=== PATIENT | female | born 1935 | race Caucasian/White ===

== ENCOUNTER 2017-09-19 11:05 | Inpatient (IN) | payer MEDICARE, BC ==
[~2017-09-19] VITALS: Ht 152.4 cm; Wt 68.6 kg
[2017-09-19 13:00] VITALS: BP 212/93; PULSE 76; RESP 16; TEMP 98.4; O2SAT 98
[2017-09-19] MEDS ORDERED: LACTULOSE SYRUP 20 GM/30 ML CUP PO PRN (13:30)
[2017-09-19] MEDS ORDERED: ACETAMINOPHEN 325 MG TAB PO PRN (13:30)
[2017-09-19] MEDS ORDERED: oxyCODONE/ACETAMINOPHEN 5 MG/325 MG TAB PO PRN (13:30)
[2017-09-19] MEDS ORDERED: CHLORHEXIDINE GLUCONATE 2 % 1 PACK (2 CLOTHS) TOP PRN (13:30)
[2017-09-19] MEDS ORDERED: SENNOSIDES 8.6 MG TAB PO PRN (13:30)
[2017-09-19] MEDS ORDERED: ONDANSETRON HCL 4 MG/2 ML VIAL IV PUSH PRN (13:30)
[2017-09-19] MEDS ORDERED: BISACODYL 10 MG SUPP RECTAL PRN (13:30)
[2017-09-19] MEDS ORDERED: MISCELLANEOUS NURSING INFORMATION XX SCH (13:30)
[2017-09-19] MEDS ORDERED: MAGNESIUM HYDROXIDE SUSP 30 ML CUP PO PRN (13:30)
[2017-09-19] MEDS ORDERED: RESP: ALBUTEROL 2.5 MG/IPRATROPIUM 0.5 MG NEB (PRN) INH (13:30)
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
[2017-09-19] MEDS ORDERED: COQ-50CA2 PO (13:41)
[2017-09-19] MEDS ORDERED: BIOTCAP PO (13:41)
[2017-09-19] MEDS ORDERED: FURO40TA PO (13:41)
[2017-09-19] MEDS ORDERED: NORC5TAB PO (13:41)
[2017-09-19] MEDS ORDERED: VITA1000 PO (13:41)
[2017-09-19] MEDS ORDERED: LEVO.05 PO (13:41)
[2017-09-19] MEDS ORDERED: MAGN400T2 PO (13:41)
[2017-09-19] MEDS ORDERED: MULTTAB67 PO (13:41)
[2017-09-19] MEDS ORDERED: ATOR20TA15 PO (13:41)
[2017-09-19] MEDS ORDERED: ALLO100T PO (13:41)
[2017-09-19] MEDS ORDERED: CARV25TA PO (13:41)
[2017-09-19] MEDS ORDERED: KLOR10TA PO (13:41)
[2017-09-19] MEDS ORDERED: LOSA100T PO (13:41)
[2017-09-19] MEDS ORDERED: ISOS30TA3 PO (13:41)
[2017-09-19] MEDS ORDERED: CLON0.3T PO (13:41)
[2017-09-19] MEDS ORDERED: FAMO1TAB37 PO (13:41)
[2017-09-19] MEDS ORDERED: MORPHINE SULFATE 2 MG/ML INJ IV PUSH PRN (13:45)
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
[2017-09-19] MEDS: cloNIDine HCL 0.3 MG TAB PO SCH ×2 (14:00→19:59)
[2017-09-19] MEDS: SODIUM CHLOR 0.9% 1000 ML INJ 1,000 ML IV SCH (14:00)
[2017-09-19] MEDS ORDERED: hydrALAZINE HCL 20 MG/ML VIAL IV PUSH PRN (14:00)
[2017-09-19] MEDS: LOSARTAN 50 MG TAB PO SCH (14:01)
[2017-09-19] MEDS: CARVEDILOL 12.5 MG TAB PO SCH ×2 (14:02→19:59)
[2017-09-19] MEDS: LABETALOL HCL 100 MG/20 ML VIAL IV PUSH PRN (14:44)
[2017-09-19 15:00] VITALS: PULSE 62
[2017-09-19 16:00] VITALS: BP 158/70; PULSE 60; RESP 14; TEMP 97.8; O2SAT 100
[2017-09-19] MEDS: DOCUSATE SODIUM 50 MG/SENNA 8.6 MG TAB PO SCH (19:59)
[2017-09-19] MEDS: FAMOTIDINE 20 MG TAB PO SCH (19:59)
[2017-09-19 20:00] VITALS: BP 150/53; PULSE 101; PULSE 58; RESP 16; TEMP 96.9; O2SAT 99
[2017-09-19 22:00] VITALS: PULSE 53
[2017-09-19 23:39] VITALS: O2SAT 99
[2017-09-20] VITALS (16 sets, daily range): BP systolic 115–196; BP diastolic 56–83; PULSE 54–67; RESP 12–27; TEMP 97.4–98.6; O2SAT 93–100
[2017-09-20] MEDS: LABETALOL HCL 100 MG/20 ML VIAL IV PUSH PRN ×3 (00:35→08:40)
[2017-09-20] MEDS ORDERED: hydrALAZINE HCL 20 MG/ML VIAL IV SCH (03:30)
[2017-09-20] MEDS: CHLORHEXIDINE GLUCONATE 2 % 1 PACK (2 CLOTHS) TOP SCH (04:00)
[2017-09-20] MEDS: LEVOTHYROXINE SODIUM 50 MCG TAB PO SCH (04:11)
[2017-09-20] MEDS ORDERED: cloNIDine HCL 0.1 MG TAB PO SCH (04:15)
[2017-09-20] MEDS: SODIUM CHLOR 0.9% 1000 ML INJ 1,000 ML IV SCH (05:35)
[2017-09-20] MEDS: ISOSORBIDE MONONITRATE 30 MG CR TAB (IMDUR) PO SCH (05:35)
[2017-09-20 07:07] LABS: BICARBONATE 24.1 MEQ/L (21.0-32.0); CALCIUM 8.2 MG/DL (8.5-10.1); CREATININE 1.29 MG/DL (0.50-1.00); MAGNESIUM 1.5 MG/DL (1.5-2.5); PHOSPHORUS 2.7 MG/DL (2.5-4.9)
[2017-09-20 07:29] LABS: AUTOMATED NEUTROPHIL # 2.6 TH/MM3 (1.8-7.7); BASOPHIL % 0.4 % (0.0-2.0); EOSINOPHIL % 0.9 % (0.0-4.0); LYMPH % 12.1 % (9.0-44.0); LYMPHOCYTE # 0.4 TH/MM3 (1.0-4.8); MEAN CELL VOLUME 120.6 FL (80.0-100.0); MEAN CORPUSCULAR HEMOGLOBIN 41.3 PG (27.0-34.0); MEAN CORPUSCULAR HGB CONC 34.3 % (32.0-36.0); MEAN PLATELET VOLUME 9.1 FL (7.0-11.0); MONO % 6.6 % (0.0-8.0); MONOCYTE # 0.2 TH/MM3 (0-0.9); PLATELET COUNT 53 TH/MM3 (150-450); RED BLOOD COUNT 1.71 MIL/MM3 (4.00-5.30); RED CELL DISTRIBUTION WIDTH 16.2 % (11.6-17.2); WHITE BLOOD COUNT 3.3 TH/MM3 (4.0-11.0)
[2017-09-20] MEDS: CARVEDILOL 12.5 MG TAB PO SCH ×2 (07:39→20:38)
[2017-09-20] MEDS: FAMOTIDINE 20 MG TAB PO SCH ×2 (07:39→20:38)
[2017-09-20] MEDS: LOSARTAN 50 MG TAB PO SCH (07:40)
[2017-09-20] MEDS: FUROSEMIDE 40 MG TAB PO SCH (07:40)
[2017-09-20] MEDS: cloNIDine HCL 0.3 MG TAB PO SCH ×2 (07:40→20:38)
[2017-09-20] MEDS: ATORVASTATIN 40 MG TAB PO SCH (07:40)
[2017-09-20] MEDS: DOCUSATE SODIUM 50 MG/SENNA 8.6 MG TAB PO SCH ×2 (07:41→20:38)
[2017-09-20 07:58] LABS: HEMATOCRIT 20.6 % (35.0-46.0)
[2017-09-20 09:00] LABS: OVALOCYTES 1+ (NORMAL)
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
--- NOTE | 2017-09-20 17:31 | RADRPT ---
EXAM DATE/TIME: 09/20/2017 17:07 [place] COMPARISON: No previous studies available for comparison. INDICATIONS : Abnormal prior brain imaging, evaluate status of subdural hematoma. RADIATION DOSE: 44.36 CTDIvol (mGy) MEDICAL HISTORY : Non-responsive. SURGICAL HISTORY : Non-responsive. ENCOUNTER: Initial ACUITY: 1 day PAIN SCALE: Non-responsive LOCATION: Bilateral head TECHNIQUE: Multiple contiguous axial images were obtained of the head. Using automated exposure control and adj ustment of the mA and/or kV according to patient size, radiation dose was kept as low as reasonably a chievable to obtain optimal diagnostic quality images. DICOM format image data is available electro nically for review and comparison. FINDINGS: No prior study for comparison. There is a 2.6 x 1.5 cm hematoma in the medial inferior right frontal lobe with surrounding edema and mild mass effect with slight midline shift of the frontal region. There is some linear hemorrhage in the left cerebellar hemisphere.. There is posterior scalp swelling or hematoma. CONCLUSION: 1. 2.6 x 1.5 cm hematoma in the medial right frontal lobe with surrounding edema and mild mass effect . Linear hemorrhage in the left cerebellar hemisphere. Otherwise no significant subdural fluid accumu lations identified. Posterior scalp hematoma. Pranay Dolan MD on September 20, 2017 at 17:21 Board Certified Radiologist. This report was verified electronically.
[2017-09-21] VITALS (12 sets, daily range): BP systolic 158–204; BP diastolic 62–87; PULSE 58–75; RESP 18–20; TEMP 97.4–98.8; O2SAT 94–100
[2017-09-21] MEDS: ENALAPRILAT 2.5 MG/2 ML VIAL IV PUSH PRN (02:14)
[2017-09-21] MEDS: CHLORHEXIDINE GLUCONATE 2 % 1 PACK (2 CLOTHS) TOP SCH (03:45)
[2017-09-21] MEDS: ISOSORBIDE MONONITRATE 30 MG CR TAB (IMDUR) PO SCH (06:17)
[2017-09-21] MEDS: LEVOTHYROXINE SODIUM 50 MCG TAB PO SCH (06:17)
[2017-09-21] MEDS ORDERED: cloNIDine HCL 0.2 MG TAB PO SCH (07:15)
[2017-09-21] MEDS: FAMOTIDINE 20 MG TAB PO SCH ×2 (08:34→21:56)
[2017-09-21] MEDS: DOCUSATE SODIUM 50 MG/SENNA 8.6 MG TAB PO SCH ×2 (08:35→21:55)
[2017-09-21] MEDS: ATORVASTATIN 40 MG TAB PO SCH (08:37)
[2017-09-21] MEDS: cloNIDine HCL 0.3 MG TAB PO SCH ×2 (08:38→21:55)
[2017-09-21] MEDS: LOSARTAN 50 MG TAB PO SCH (08:38)
[2017-09-21] MEDS: CARVEDILOL 12.5 MG TAB PO SCH ×2 (08:38→21:55)
[2017-09-21] MEDS: FUROSEMIDE 40 MG TAB PO SCH (08:38)
[2017-09-21 09:32] LABS: AUTOMATED NEUTROPHIL # 3.5 TH/MM3 (1.8-7.7); BASOPHIL % 0.5 % (0.0-2.0); HEMATOCRIT 24.8 % (35.0-46.0); HEMOGLOBIN 8.5 GM/DL (11.6-15.3); LYMPH % 11.9 % (9.0-44.0); LYMPHOCYTE # 0.5 TH/MM3 (1.0-4.8); MEAN CELL VOLUME 111.5 FL (80.0-100.0); MEAN CORPUSCULAR HEMOGLOBIN 38.3 PG (27.0-34.0); MEAN CORPUSCULAR HGB CONC 34.3 % (32.0-36.0); MEAN PLATELET VOLUME 8.1 FL (7.0-11.0); MONO % 7.2 % (0.0-8.0); MONOCYTE # 0.3 TH/MM3 (0-0.9); NEUT % 79.4 % (16.0-70.0); PLATELET COUNT 76 TH/MM3 (150-450); RED BLOOD COUNT 2.22 MIL/MM3 (4.00-5.30); RED CELL DISTRIBUTION WIDTH 21.6 % (11.6-17.2); WHITE BLOOD COUNT 4.4 TH/MM3 (4.0-11.0)
[2017-09-21 09:35] LABS: RETIC # 48.3 MIL/L (20.0-150.0); RETIC % 2.2 % (0.4-3.0)
[2017-09-21 10:00] LABS: ALBUMIN 3.3 GM/DL (3.4-5.0); AST (GOT) 34 U/L (15-37); BICARBONATE 23.4 MEQ/L (21.0-32.0); BLOOD UREA NITROGEN 39 MG/DL (7-18); CALCIUM 8.4 MG/DL (8.5-10.1); CHLORIDE 99 MEQ/L (98-107); CREATININE 1.49 MG/DL (0.50-1.00); GLOMERULAR FILTRATION RATE 34 ML/MIN (>89); GLUCOSE,RANDOM 99 MG/DL (74-106); SODIUM (NA) 133 MEQ/L (136-145)
[2017-09-21 10:01] LABS: ALT (GPT) 22 U/L (10-53)
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
[2017-09-21 10:27] LABS: ALKALINE PHOSPHATASE 112 U/L (45-117); TOTAL BILIRUBIN ADULT 1.7 MG/DL (0.2-1.0); TOTAL PROTEIN 7.2 GM/DL (6.4-8.2)
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
[2017-09-21 10:30] LABS: FOLATE GREATER THAN 20.0 NG/ML (3.1-17.5)
--- NOTE | 2017-09-21 11:28 | PD.WCN.NOT ---
Wound Consult Description: Wound consult ordered by Communicated with: Carleen CLOUD [address] [place] [address], Recommendation: 1) Cleanse bilateral lower extremities with normal saline pat dry 2) Apply calcium alginate cut to fit wound bases to open/weeping areas change every 3 days or as needed for exudate management. 3) Ensure patient keeps custom orthotic garments on lower extremities. 4) Follow up with out patient wound care. 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 Rosalee Farah [facility] Sep 21, 2017 11:28
[2017-09-21] MEDS ORDERED: NIFEdipine 60 MG SUSTAINED RELEASE TAB PO ONE (13:45)
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
--- NOTE | 2017-09-21 22:25 | HHI.PR ---
Subjective Remarks Follow up for fall, intracranial hemorrhage, MDS. Patient is currently doing well. Ambulating in room. No acute concerns. Objective Vitals Vital Signs Date Time Temp Pulse Resp B/P (MAP) Pulse Ox O2 Delivery O2 Flow Rate FiO2 09/21/17 17:19 64 09/21/17 16:00 97.9 58 20 158/62 (94) 98 09/21/17 12:00 98.5 64 18 168/74 (105) 96 09/21/17 11:57 75 09/21/17 11:49 94 2.00 09/21/17 10:32 166/72 (103) 09/21/17 08:00 98.8 59 20 185/74 (111) 94 09/21/17 06:00 204/87 (126) 09/21/17 05:03 97.4 61 18 100 09/21/17 04:57 61 09/21/17 01:50 97.6 62 18 199/81 100 09/21/17 01:20 97.6 61 18 187/75 99 09/20/17 23:45 97.7 56 18 173/76 96 09/20/17 23:23 98.6 54 18 192/80 100 09/20/17 23:05 100 Nasal Cannula 2.00 I/O 09/20/17 09/20/17 09/20/17 09/21/17 09/21/17 09/21/17 06:59 14:59 22:59 06:59 14:59 22:59 Intake Total 859 ml 600 ml 711 ml Output Total 500 ml 600 ml 450 ml Balance 359 ml 0 ml 261 ml Intake Oral 240 ml 600 ml 120 ml IV Total 619 ml Packed Cells 400 ml Platelets 191 ml Output Urine Total 500 ml 600 ml 450 ml # Voids 0 # Bowel Movements 0 Result Diagram: 09/21/17 0907 09/21/17 0907 Imaging Last Impressions Head CT 09/20/17 0000 Signed Impressions: Service Date/Time: Wednesday, September 20, 2017 17:07 - CONCLUSION: 1. 2.6 x 1.5 cm hematoma in the medial right frontal lobe with surrounding edema and mild mass effect. Linear hemorrhage in the left cerebellar hemisphere. Otherwise no significant subdural fluid accumulations identified. Posterior scalp hematoma. Pranay Dolan MD Objective Remarks GENERAL: Alert, Oriented x3, NAD. SKIN: Warm and dry. HEAD: Normocephalic. EYES: No scleral icterus. No injection or drainage. NECK: Supple, trachea midline. No JVD or lymphadenopathy. CARDIOVASCULAR: Regular rate and rhythm without murmurs, gallops, or rubs. RESPIRATORY: Breath sounds equal bilaterally. No accessory muscle use. GASTROINTESTINAL: Abdomen soft, non-tender, nondistended. MUSCULOSKELETAL: No cyanosis, or edema. BACK: Nontender without obvious deformity. No CVA tenderness. Procedures None. A/P Assessment and Plan Fall Intracranial hemorrhage - Neurosurgery following. - Patient has no neurological deficits. No surgical intervention at this point. - Discussed with Toddler Guide, Dr. Estrada. We will repeat CT brain without contrast in the AM. - IF CT brain tomorrow shows no worsening of bleed and patient remains asymptomatic, patient can likely be discharged. Myelodysplastic syndrome - Plt count was 53K. Patient has received 1 unit of PRBCs and one unit of Platelets. - Will check CBC in the AM. Full code. Ambulation. Discharge plan: Possible discharge tomorrow 09/22/2017. Ayala Olguin DO Sep 21, 2017 22:25
[2017-09-22] VITALS (11 sets, daily range): BP systolic 145–199; BP diastolic 76–90; PULSE 48–75; RESP 16–19; TEMP 97.5–98.4; O2SAT 91–100
[2017-09-22] MEDS: ENALAPRILAT 2.5 MG/2 ML VIAL IV PUSH PRN (00:39)
[2017-09-22] MEDS: CHLORHEXIDINE GLUCONATE 2 % 1 PACK (2 CLOTHS) TOP SCH (03:36)
[2017-09-22] MEDS ORDERED: cloNIDine HCL 0.1 MG TAB PO ONE (04:30)
[2017-09-22] MEDS: LEVOTHYROXINE SODIUM 50 MCG TAB PO SCH (05:46)
[2017-09-22] MEDS: ISOSORBIDE MONONITRATE 30 MG CR TAB (IMDUR) PO SCH (06:09)
[2017-09-22 06:25] LABS: AUTOMATED NEUTROPHIL # 3.1 TH/MM3 (1.8-7.7); BASOPHIL % 0.4 % (0.0-2.0); EOSINOPHIL % 1.2 % (0.0-4.0); HEMATOCRIT 23.2 % (35.0-46.0); LYMPH % 10.9 % (9.0-44.0); LYMPHOCYTE # 0.4 TH/MM3 (1.0-4.8); MEAN CELL VOLUME 115.4 FL (80.0-100.0); MEAN CORPUSCULAR HEMOGLOBIN 39.6 PG (27.0-34.0); MEAN CORPUSCULAR HGB CONC 34.3 % (32.0-36.0); MEAN PLATELET VOLUME 8.2 FL (7.0-11.0); MONO % 8.6 % (0.0-8.0); MONOCYTE # 0.3 TH/MM3 (0-0.9); NEUT % 78.9 % (16.0-70.0); PLATELET COUNT 71 TH/MM3 (150-450); RED BLOOD COUNT 2.01 MIL/MM3 (4.00-5.30); RED CELL DISTRIBUTION WIDTH 20.9 % (11.6-17.2)
[2017-09-22 06:54] LABS: BICARBONATE 22.6 MEQ/L (21.0-32.0); CALCIUM 8.3 MG/DL (8.5-10.1); CREATININE 1.36 MG/DL (0.50-1.00)
[2017-09-22 07:43] LABS: OVALOCYTES 1+ (NORMAL)
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
--- NOTE | 2017-09-22 08:37 | RADRPT ---
EXAM DATE/TIME: 09/22/2017 08:06 [facility] COMPARISON: CT BRAIN W/O CONTRAST, September 20, 2017, 17:07. INDICATIONS : Follow up trauma. RADIATION DOSE: 56.35 CTDIvol (mGy) MEDICAL HISTORY : Chronic obstructive pulmonary disease. Congestive heart failure. Hypertension. SURGICAL HISTORY : None. ENCOUNTER: Initial ACUITY: 1 day PAIN SCALE: 4/10 LOCATION: cranial TECHNIQUE: Multiple contiguous axial images were obtained of the head. Using automated exposure control and adj ustment of the mA and/or kV according to patient size, radiation dose was kept as low as reasonably a chievable to obtain optimal diagnostic quality images. DICOM format image data is available electro nically for review and comparison. FINDINGS: Interval evolution of medial right frontal lobe low convexity hematoma measuring 2.3 x 1.6 cm in comp arison to 2.6 x 1.5 cm on prior exam. They're slightly more prominent surrounding vasogenic edema wit h approximately 4 mm right to left shift. There is also interval evolution of small amount of hemorrh age in the left cerebellar hemisphere. No significant mass effect. No intercurrent intra-or extra-axi al hemorrhage. Basilar cisterns are maintained. Ventricles are normal in size without hydrocephalus. Redemonstration of moderate cerebral atrophy and small old lacunar infarct in the right caudate head. Soft tissue hematoma in the right posterior scalp region. Remainder of the exam is unchanged. CONCLUSION: 1. Evolving medial right frontal lobe hemorrhage with slight increased surrounding vasogenic edema. A pproximate 4 mm focal [id number] shift. 2. Evolving small amount of hemorrhage in the left cerebellar hemisphere without significant mass eff ect. 3. No intercurrent hemorrhage or hydrocephalus.. John Guillory MD on September 22, 2017 at 8:28 Board Certified Radiologist. This report was verified electronically.
[2017-09-22] MEDS: FAMOTIDINE 20 MG TAB PO SCH ×2 (09:00→21:58)
[2017-09-22] MEDS ORDERED: NIFEdipine 60 MG SUSTAINED RELEASE TAB PO SCH (09:00)
[2017-09-22] MEDS: DOCUSATE SODIUM 50 MG/SENNA 8.6 MG TAB PO SCH ×2 (09:00→21:58)
[2017-09-22] MEDS: cloNIDine HCL 0.3 MG TAB PO SCH (09:46)
[2017-09-22] MEDS: ATORVASTATIN 40 MG TAB PO SCH (09:46)
[2017-09-22] MEDS: CARVEDILOL 12.5 MG TAB PO SCH ×2 (09:46→21:44)
[2017-09-22] MEDS: LOSARTAN 50 MG TAB PO SCH (09:46)
[2017-09-22] MEDS: TORSEMIDE 20 MG TAB PO SCH (09:46)
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
[2017-09-22] MEDS ORDERED: diphenhydrAMINE HCL 25 MG CAP PO PRN (14:30)
[2017-09-22] MEDS: cloNIDine HCL 0.2 MG TAB PO SCH ×2 (14:34→21:45)
--- NOTE | 2017-09-22 19:36 | HHI.PR ---
Subjective Remarks Follow up for fall, intracranial hemorrhage, MDS. Patient is currently doing well. No acute concerns. Ambulating well. Wants to go home. Her step-daughter is coming from [facility] or tomorrow. Objective Vitals Vital Signs Date Time Temp Pulse Resp B/P (MAP) Pulse Ox O2 Delivery O2 Flow Rate FiO2 09/22/17 19:02 98.4 60 18 145/78 (100) 96 09/22/17 18:43 48 09/22/17 14:43 100 Nasal Cannula 2.00 09/22/17 12:17 97.5 54 18 148/76 (100) 91 09/22/17 10:01 100 09/22/17 09:36 97.8 60 16 184/79 (114) 100 09/22/17 06:59 97.7 75 19 189/81 (117) 93 09/22/17 04:58 58 09/22/17 03:42 97.5 62 19 189/81 (117) 97 09/22/17 02:18 19 09/22/17 00:51 97.8 59 19 199/83 (121) 94 09/21/17 23:00 93 Nasal Cannula 2.00 09/21/17 20:00 58 I/O 09/21/17 09/21/17 09/21/17 09/22/17 09/22/17 09/22/17 06:59 14:59 22:59 06:59 14:59 22:59 Intake Total 711 ml 240 ml 480 ml Output Total 450 ml Balance 261 ml 240 ml 480 ml Intake Oral 120 ml 240 ml 480 ml Packed Cells 400 ml Platelets 191 ml Output Urine Total 450 ml # Voids 2 3 # Bowel Movements 1 Result Diagram: 09/22/17 0530 09/22/17 0530 Imaging Last Impressions Head CT 09/22/17 0800 Signed Impressions: Service Date/Time: Friday, September 22, 2017 08:06 - CONCLUSION: 1. Evolving medial right frontal lobe hemorrhage with slight increased surrounding vasogenic edema. Approximate 4 mm focal [id number] shift. 2. Evolving small amount of hemorrhage in the left cerebellar hemisphere without significant mass effect. 3. No intercurrent hemorrhage or hydrocephalus.. John Guillory MD Objective Remarks GENERAL: Alert, Oriented x3, NAD. SKIN: Warm and dry. HEAD: Normocephalic. EYES: No scleral icterus. No injection or drainage. NECK: Supple, trachea midline. No JVD or lymphadenopathy. CARDIOVASCULAR: Regular rate and rhythm without murmurs, gallops, or rubs. RESPIRATORY: Breath sounds equal bilaterally. No accessory muscle use. GASTROINTESTINAL: Abdomen soft, non-tender, nondistended. MUSCULOSKELETAL: No cyanosis, or edema. BACK: Nontender without obvious deformity. No CVA tenderness. Procedures None. A/P Assessment and Plan Fall Intracranial hemorrhage - Neurosurgery following. - Patient has no neurological deficits. No surgical intervention at this point. - Repeat CT head shows evolving ICH. Neurosurgery cleared for discharge. - PLT count dropped from 76K to 71K. Will check PLT count again tomorrow morning. - Patient remains hemodynamically stable and asymptomatic. Myelodysplastic syndrome - Plt count was 53K. Patient has received 1 unit of PRBCs and one unit of Platelets. Full code. Ambulation. Patient's daughter will be in town tomorrow. Hopefully discharge home tomorrow. Ayala Olguin DO Sep 22, 2017 19:36
--- NOTE | 2017-09-22 20:07 | PD.ONC.PN ---
Subjective Subjective Remarks no complaints and wants to go home tomorrow am Objective Data Date Time Temp Pulse Resp B/P (MAP) Pulse Ox O2 Delivery O2 Flow Rate FiO2 09/22/17 19:02 98.4 60 18 145/78 (100) 96 09/22/17 18:43 48 09/22/17 14:43 100 Nasal Cannula 2.00 09/22/17 12:17 97.5 54 18 148/76 (100) 91 09/22/17 10:01 100 09/22/17 09:36 97.8 60 16 184/79 (114) 100 09/22/17 06:59 97.7 75 19 189/81 (117) 93 09/22/17 04:58 58 09/22/17 03:42 97.5 62 19 189/81 (117) 97 09/22/17 02:18 19 09/22/17 00:51 97.8 59 19 199/83 (121) 94 09/21/17 23:00 93 Nasal Cannula 2.00 09/22/17 09/22/17 09/22/17 07:00 15:00 23:00 Intake Total 240 ml 480 ml Balance 240 ml 480 ml Result Diagram: 09/22/17 0530 09/22/17 0530 Laboratory Results Laboratory Tests Test 09/22/17 05:30 White Blood Count 4.0 TH/MM3 Red Blood Count 2.01 MIL/MM3 Hemoglobin 8.0 GM/DL Hematocrit 23.2 % Mean Corpuscular Volume 115.4 FL Mean Corpuscular Hemoglobin 39.6 PG Mean Corpuscular Hemoglobin Concent 34.3 % Red Cell Distribution Width 20.9 % Platelet Count 71 TH/MM3 Mean Platelet Volume 8.2 FL Neutrophils (%) (Auto) 78.9 % Lymphocytes (%) (Auto) 10.9 % Monocytes (%) (Auto) 8.6 % Eosinophils (%) (Auto) 1.2 % Basophils (%) (Auto) 0.4 % Neutrophils # (Auto) 3.1 TH/MM3 Lymphocytes # (Auto) 0.4 TH/MM3 Monocytes # (Auto) 0.3 TH/MM3 Eosinophils # (Auto) 0.0 TH/MM3 Basophils # (Auto) 0.0 TH/MM3 CBC Comment AUTO DIFF Differential Comment AUTO DIFF CONFIRMED Platelet Estimate LOW Platelet Morphology Comment ENLARGED Ovalocytes 1+ Blood Urea Nitrogen 42 MG/DL Creatinine 1.36 MG/DL Random Glucose 105 MG/DL Calcium Level 8.3 MG/DL Sodium Level 136 MEQ/L Potassium Level 3.6 MEQ/L Chloride Level 103 MEQ/L Carbon Dioxide Level 22.6 MEQ/L Anion Gap 10 MEQ/L Estimat Glomerular Filtration Rate 37 ML/MIN Imaging Studies Last [address] 09/22/17 0800 Signed Impressions: Service Date/Time: Friday, September 22, 2017 08:06 - CONCLUSION: 1. Evolving medial right frontal lobe hemorrhage with slight increased surrounding vasogenic edema. Approximate 4 mm focal [id number] shift. 2. Evolving small amount of hemorrhage in the left cerebellar hemisphere without significant mass effect. 3. No intercurrent hemorrhage or hydrocephalus.. John Guillory MD Administered Medications Medications (Trade) Dose Ordered Sig/Horace Route PRN Reason Start Time Stop Time Status Last Admin Dose Admin Acetaminophen (Tylenol) 650 mg Q6H PRN PO FEVER >101F 09/19/17 13:30 09/19/17 14:04 Oxycodone/ Acetaminophen (Percocet 5-325 Mg) 1 tab Q4H PRN PO PAIN SCALE 1 TO 5 09/19/17 13:30 09/22/17 00:40 Miscellaneous Information 1 Q361D XX 09/19/17 13:30 09/19/17 13:30 Senna/Docusate Sodium (Kristan-Colace) 1 tab BID PO 09/19/17 21:00 09/21/17 21:55 Carvedilol (Coreg) 25 mg Q12HR PO 09/19/17 13:45 09/22/17 09:46 Levothyroxine Sodium (Synthroid) 50 mcg DAILY@0600 PO 09/20/17 06:00 09/22/17 05:46 Losartan Potassium (Cozaar) 100 mg DAILY PO 09/19/17 13:45 09/22/17 09:46 Atorvastatin Calcium (Lipitor) 40 mg DAILY PO 09/20/17 09:00 09/22/17 09:46 Isosorbide Mononitrate (Imdur) 30 mg DAILY@07 PO 09/20/17 07:00 09/22/17 06:09 Enalaprilat (Vasotec Inj) 2.5 mg Q6H PRN IV PUSH SBP>160, DBP>90 09/21/17 02:00 09/22/17 00:39 Torsemide (Demadex) 20 mg DAILY PO 09/22/17 09:00 09/22/17 09:46 Clonidine (Catapres) 0.2 mg Q8HR PO 09/22/17 14:00 09/22/17 14:34 Diphenhydramine HCl (Benadryl) 25 mg Q8HR PRN PO ITCHING 09/22/17 14:30 09/22/17 14:55 Objective Remarks GENERAL: Well-nourished, well-developed patient. SKIN: Warm and dry. HEAD: Normocephalic. EYES: No scleral icterus. No injection or drainage. NECK: Supple, trachea midline. No JVD or lymphadenopathy. LYMPHATIC: No adenopathy. CARDIOVASCULAR: Regular rate and rhythm without murmurs. RESPIRATORY: Breath sounds equal bilaterally. No accessory muscle use. GASTROINTESTINAL: Abdomen soft, non-tender, nondistended. EXTREMITIES: +2 edema. MUSCULOSKELETAL: Adequate muscle tone. NEUROLOGICAL: No obvious focal deficit. Awake, alert, and oriented x3. PSYCHIATRIC: Appropriate mood and affect; insight and judgment norm. Assessment/Plan Assessment 1: myelodysplasia with intracerebral bleed. no further bleeding and platelet count adequate and platelet transfusion not indicated. I offered her a unit of packed cells as her hemoglobin will soon begin to fall. 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 I suggested to her that she consider maintaining hemoglobins greater then or equal to 8 and follow up with her physicians regarding her diuretic use given the degree of edema. Nothing further to add. Dorian Estrada MD Sep 22, 2017 20:07
[2017-09-23] VITALS: BP 136/83; PULSE 48; RESP 18; TEMP 97.6; O2SAT 98
[2017-09-23 03:12] VITALS: PULSE 49
[2017-09-23 04:00] VITALS: BP 140/93; PULSE 55; RESP 18; TEMP 98; O2SAT 98
[2017-09-23] MEDS: CHLORHEXIDINE GLUCONATE 2 % 1 PACK (2 CLOTHS) TOP SCH (04:41)
[2017-09-23] MEDS: LEVOTHYROXINE SODIUM 50 MCG TAB PO SCH (05:33)
[2017-09-23] MEDS: cloNIDine HCL 0.2 MG TAB PO SCH (06:00)
[2017-09-23] MEDS: ISOSORBIDE MONONITRATE 30 MG CR TAB (IMDUR) PO SCH (07:00)
[2017-09-23 08:00] VITALS: BP 192/83; PULSE 55; RESP 18; TEMP 97.9; O2SAT 99
[2017-09-23] MEDS: FAMOTIDINE 20 MG TAB PO SCH (09:15)
[2017-09-23] MEDS: LOSARTAN 50 MG TAB PO SCH (09:16)
[2017-09-23] MEDS: TORSEMIDE 20 MG TAB PO SCH (09:16)
[2017-09-23] MEDS: CARVEDILOL 12.5 MG TAB PO SCH (09:17)
[2017-09-23] MEDS: DOCUSATE SODIUM 50 MG/SENNA 8.6 MG TAB PO SCH (09:17)
[2017-09-23] MEDS: ATORVASTATIN 40 MG TAB PO SCH (09:17)
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
[2017-09-23 12:11] VITALS: BP 159/70; PULSE 59; RESP 18; TEMP 98.2; O2SAT 95
[2017-09-23] MEDS ORDERED: CLON.2 PO (13:13)
[2017-09-23] MEDS ORDERED: TORS1TAB12 PO (13:13)
== END 2017-09-23 15:18 | disposition home or self-care (01) | DRG 85 ==
LOC: N03A 13:27 → N05A 09-20 21:56
PROVIDERS: ADMIT Hospitalist; ATTEND Hospitalist
PROC: 30233R1 Transfusion of Nonautologous Platelets into Peripheral Vein, Percutaneous Approach (ICD-10-PCS; principal; 2017-09-20)
PROC: 30233N1 Transfusion of Nonautologous Red Blood Cells into Peripheral Vein, Percutaneous Approach (ICD-10-PCS; 2017-09-21)
DX: S06.370A Contusion, laceration, and hemorrhage of cerebellum without loss of consciousness, initial encounter (principal); G93.6 Cerebral edema; S06.5X0A Traumatic subdural hemorrhage without loss of consciousness, initial encounter; I13.0 Hypertensive heart and chronic kidney disease with heart failure and stage 1 through stage 4 chronic kidney disease, or unspecified chronic kidney disease; I50.22 Chronic systolic (congestive) heart failure; I50.9 Heart failure, unspecified; D69.59 Other secondary thrombocytopenia; D63.8 Anemia in other chronic diseases classified elsewhere; D46.9 Myelodysplastic syndrome, unspecified; N18.2 Chronic kidney disease, stage 2 (mild); I16.0 Hypertensive urgency; I89.0 Lymphedema, not elsewhere classified; J44.9 Chronic obstructive pulmonary disease, unspecified; W18.39XA Other fall on same level, initial encounter; Y92.481 Parking lot as the place of occurrence of the external cause; Z80.1 Family history of malignant neoplasm of trachea, bronchus and lung; Z85.3 Personal history of malignant neoplasm of breast; Z87.891 Personal history of nicotine dependence; Z88.2 Allergy status to sulfonamides; Z90.11 Acquired absence of right breast and nipple; Z92.3 Personal history of irradiation
CPT/HCPCS: 36430; 70450; 80048; 80053; 82607; 82746; 83615; 83735; 84100; 85025; 85044; 85049; 86850; 86900; 86901; 86920; 86922; 87641; J0360; J7030; P9016; P9035

== ENCOUNTER 2017-10-24 02:46 | Inpatient (IN) | payer MEDICARE, BC ==
[~2017-10-24] VITALS: Ht 165.1 cm; Wt 68.6 kg
[2017-10-24] VITALS (12 sets, daily range): BP systolic 107–162; BP diastolic 54–80; PULSE 90–105; RESP 22–24; TEMP 97.8–98.9; O2SAT 95–100
[~2017-10-24 02:46] MED LIST: ALLO100T PO; ATOR20TA15 PO; BIOTCAP PO; CARV25TA PO; CLON.2 PO; COQ-50CA2 PO; FAMO1TAB37 PO; ISOS30TA3 PO; KLOR10TA PO; LEVO.05 PO; LOSA100T PO; MAGN400T2 PO; MULTTAB67 PO; NORC5TAB PO; TORS1TAB12 PO; VITA1000 PO
[2017-10-24] MEDS ORDERED: DEXTROSE 50% IN WATER 50 ML VIAL(D50) IV PUSH PRN (05:30)
[2017-10-24] MEDS ORDERED: POTASSIUM PHOSPHATE INJ 30 MMOL in SODIUM CHLOR 0.9% 250 ML INJ 250 ML IV PRN (05:30)
[2017-10-24] MEDS ORDERED: POTASSIUM PHOSPHATE MONOBASIC 500 MG TAB PO/TUBE PRN (05:30)
[2017-10-24] MEDS ORDERED: SODIUM CHLOR 0.9% 1000 ML INJ 1,000 ML IV SCH (05:30)
[2017-10-24] MEDS ORDERED: POTASSIUM CHLOR 40 MEQ PREMIX 100 ML IV PRN ×2 (05:30)
[2017-10-24] MEDS ORDERED: MAGNESIUM OXIDE 400 MG TAB PO PRN (05:30)
[2017-10-24] MEDS ORDERED: hydrALAZINE HCL 20 MG/ML VIAL IV PUSH PRN ×2 (05:30→12:00)
[2017-10-24] MEDS ORDERED: niCARdipine INJ 25 MG in SODIUM CHLOR 0.9% 250 ML INJ 240 ML IV PRN (05:30)
[2017-10-24] MEDS ORDERED: SODIUM PHOSPHATE INJ 30 MMOL in SODIUM CHLOR 0.9% 250 ML INJ 240 ML IV PRN (05:30)
[2017-10-24] MEDS ORDERED: MAGNESIUM SULFATE INJ 4 GM in SODIUM CHLORIDE 0.9% INJ 92 ML IV PRN (05:30)
[2017-10-24] MEDS ORDERED: POTASSIUM CHLOR 20 MEQ PREMIX 100 ML IV PRN ×2 (05:30)
[2017-10-24] MEDS ORDERED: MISCELLANEOUS NURSING INFORMATION XX SCH (05:30)
[2017-10-24] MEDS ORDERED: LABETALOL HCL 100 MG/20 ML VIAL IV PUSH PRN (05:30)
[2017-10-24] MEDS ORDERED: MAGNESIUM SULFATE INJ 2 GM in SODIUM CHLORIDE 0.9% INJ 96 ML IV PRN (05:30)
[2017-10-24] MEDS ORDERED: CHLORHEXIDINE GLUCONATE 2 % 1 PACK (2 CLOTHS) TOP PRN (05:30)
[2017-10-24] MEDS ORDERED: POTASSIUM PHOSPHATE MONOBASIC 500 MG TAB PO PRN (05:30)
[2017-10-24] MEDS ORDERED: RESP: ALBUTEROL 2.5 MG/IPRATROPIUM 0.5 MG NEB (PRN) INH (05:30)
[2017-10-24] MEDS ORDERED: POTASSIUM CHLORIDE 25 MEQ EFFERVESCENT TAB PO PRN (05:30)
[2017-10-24] MEDS ORDERED: ONDANSETRON HCL 4 MG/2 ML VIAL IV PUSH PRN (05:30)
[2017-10-24] MEDS: INSULIN NovoLIN REGULAR SUPPLEMENTAL SCALE SQ SCH ×3 (06:00→16:53)
--- NOTE | 2017-10-24 06:06 | HHI.HP ---
HPI Service Critical Care Medicine Primary Care Physician Unknown Admission Diagnosis Diagnosis: Chief Complaint: aphasia Travel History International Travel<30 Days: No Contact w/Intl Traveler <30 Da: No Traveled to Known Affected Are: No History of Present Illness This is an 82yF who was recently at our facility in 09/2017 for a traumatic ICH who presented to [facility] with acute onset of aphasia and was found to have a large left frontal spontaneous intraparenchymal hemorrhage. She is transferred to [facility] for our stroke and neurosurgical services. I evaluated the patient upon arrival to the ICU from [facility]. Her BP is 170s systolic on my arrival. We immediately started nicardipine infusion to target a SBP < 140. Due to her expressive aphasia, no information is available from the patient and ROS is unobtainable. The remainder of the medical history is obtained from the our records from 09/2017. Review of Systems ROS Limitations: Clinical Condition, Altered Mental Status, Speech Impaired Past Family Social History Allergies: Coded Allergies: NSAIDS (Non-Steroidal Anti-Inflamma (Verified Allergy, Severe, Ulcers, ) stomach bleeding and ulcers aliskiren (Verified Allergy, Severe, Cough, 09/19/17) cough, diarrhea, upset stomach amlodipine (Verified Allergy, Severe, Insomnia, 09/19/17) difficulty sleeping, heavy heart beat, muscle and joint pain hydralazine (Verified Allergy, Severe, Rash, 09/19/17) rash around mouth lisinopril (Verified Allergy, Severe, Nausea/Vomiting, 09/19/17) lightheaded, nausea, sore throat nisoldipine (Verified Allergy, Severe, Rash, 09/19/17) Rash olmesartan (Verified Allergy, Severe, Chills, 09/19/17) sore throat, diarrhea, chills and fever ramipril (Verified Allergy, Severe, Joint Pain, 09/19/17) sore throat, muscle and joint pain sulfamethoxazole (Verified Allergy, Severe, Appetite Changes(Inc/Dec), ) loss of appetite, nausea, and muscle weakness trimethoprim (Verified Allergy, Severe, Appetite Changes(Inc/Dec), 09/19/17 ) loss of appetite, nausea, and muscle weakness Past Medical History CHF COPD Chronic lower extremity edema CKD, Stage II hypertension Myelodysplasia requiring transfusions thrombocytopenia right breast cancer 1998 Past Surgical History laparotomy for perforated DU in past Reported Medications Demadex (Torsemide) 20 Mg Tab 20 Mg PO DAILY Catapres (Clonidine) 0.2 Mg Tab 0.2 Mg PO Q8HR [place] (Hydrocodone-Acetaminophen) 5 Mg-325 Mg Tab 1 Tab PO Q6H PRN Pepcid (Famotidine) 20 Mg Tab 20 Mg PO BID PRN Coq-10 (Coenzyme Q10 (Ubidecarenone)) 50 Mg Cap 100 Mg PO BID Biotin 5 Mg Cap 5 Mg PO DAILY Vitamin D-1000 (Cholecalciferol) 1,000 Unit Tab 1,000 Units PO DAILY Multiple Vitamin 1 Tab 1 Tab PO DAILY Synthroid (Levothyroxine Sodium) 50 Mcg Tab 50 Mcg PO DAILY Atorvastatin (Atorvastatin Calcium) 20 Mg Tab 20 Mg PO HS Klor-Con 10 (Potassium Chloride) 10 Meq Tab 10 Meq PO DAILY Magnesium Oxide 400 Mg Tab 400 Mg PO BID Losartan (Losartan Potassium) 100 Mg Tab 100 Mg PO DAILY Isosorbide Mononitrate ER (Isosorbide Mononitrate) 30 Mg Jeimy 30 Mg PO DAILY Carvedilol 25 Mg Tab 25 Mg PO BID Allopurinol 100 Mg Tab 100 Mg PO DAILY Active Ordered Medications See MAR Family History unknown and unobtainable secondary to the clinical condition of the patient. unlikely to be contributory to her acute illness. Social History unknown and unobtainable secondary to the clinical condition of the patient. Physical Exam Physical Exam gen: frail elderly female, lying in bed. heent: nc. at. pupils are 2 mm, bilaterally equal, reactive, round, conjugate. mucous membranes moist. neck: no jvd. trachea midline. chest: equal chest rise. room air. cv: normal rate, regular rhythm in the 90s. appears sinus by telemetry. abd: soft, nontender, nondistended. no guarding. extr: no peripheral edema. distal pulses 2+. neuro: RASS 0. looking around. appears alert. dense expressive aphasia. does follow commands x 4 and moves all extremities with good strength. receptive language appears to be intact. CN 2- 12 grossly intact. difficult to assess sensation. Imaging OSH CT head 10/23: large left frontal intraparenchymal hemorrhage. Caprini VTE Risk Assessment Caprini VTE Risk Assessment: Mod/High Risk (score >= 2) VTE Pharm Contraindication: Intracranial lesions Caprini Risk Assessment Model Point Value = 1 Point Value = 2 Point Value = 3 Point Value = 5 Age 41-60 Minor surgery BMI > 25 kg/m2 Swollen legs Varicose veins or History of unexplained or recurrent spontaneous Oral contraceptives or hormone replacement Sepsis (< 1 month) Serious lung disease, including pneumonia (< 1 month) Abnormal pulmonary function Acute myocardial infarction Congestive heart failure (< 1 month) History of inflammatory bowel disease Medical patient at bed rest Age 61-74 Arthroscopic surgery Major open surgery (> 45 min) Laparoscopic surgery (> 45 min) Malignancy Confined to bed (> 72 hours) Immobilizing plaster cast Central venous access Age >= 75 History of VTE Family history of VTE Factor V Leiden Prothrombin [id number] Lupus anticoagulant Anticardiolipin antibodies Elevated serum homocysteine Heparin-induced thrombocytopenia Other congenital or acquired thrombophilia Stroke (< 1 month) Elective arthroplasty Hip, pelvis, or leg fracture Acute spinal cord injury (< 1 month) Prophylaxis Regimen Total Risk Factor Score Risk Level Prophylaxis Regimen 0-1 Low Early ambulation 2 Moderate Order ONE of the following: *Sequential Compression Device (SCD) *Heparin 5000 units SQ BID 3-4 Higher Order ONE of the following medications: *Heparin 5000 units SQ TID *Enoxaparin/Lovenox 40 mg SQ daily (WT < 150 kg, CrCl > 30 mL/min) *Enoxaparin/Lovenox 30 mg SQ daily (WT < 150 kg, CrCl > 10-29 mL/min) *Enoxaparin/Lovenox 30 mg SQ BID (WT < 150 kg, CrCl > 30 mL/min) AND/OR *Sequential Compression Device (SCD) 5 or more Highest Order ONE of the following medications: *Heparin 5000 units SQ TID (Preferred with Epidurals) *Enoxaparin/Lovenox 40 mg SQ daily (WT < 150 kg, CrCl > 30 mL/min) *Enoxaparin/Lovenox 30 mg SQ daily (WT < 150 kg, CrCl > 10-29 mL/min) *Enoxaparin/Lovenox 30 mg SQ BID (WT < 150 kg, CrCl > 30 mL/min) AND *Sequential Compression Device (SCD) Assessment and Plan Assessment and Plan Assessment: 82yF with a prior traumatic intracerebral hemorrhage presents now with a spontaneous large left frontal intraparenchymal hemorrhage with dense expressive aphasia. will repeat head CT. aggressively treat hypertension. check labs. consult neurosurgery for their opinion. Critically ill with large ICH. Active Problems: Large left frontal Intraparenchymal hemorrhage Dense expressive aphasia Hypertensive emergency Plan: nicardipine, hydralazine, labetalol prn for goal sbp < 140 neurosurgery consultation stat repeat head CT to eval for evolution of the bleed hold home PO meds speech eval for swallowing q1h neuro checks ssi NPO NS @ 84cc/hr pepcid iv SCDs hold pharmacologic DVT prophylaxis. Admit to ICU. Critical care time: 39 minutes, exclusive of separately billable procedures. Ian Santos MD Oct 24, 2017 06:06
--- NOTE | 2017-10-24 06:23 | RADRPT ---
EXAM DATE/TIME: 10/24/2017 06:06 [place] COMPARISON: CT BRAIN W/O CONTRAST, September 22, 2017, 8:06. INDICATIONS : Aphasic. RADIATION DOSE: 56.35 CTDIvol (mGy) MEDICAL HISTORY : Non-responsive. SURGICAL HISTORY : Non-responsive. ENCOUNTER: Initial ACUITY: 1 day PAIN SCALE: Non-responsive LOCATION: cranial TECHNIQUE: Multiple contiguous axial images were obtained of the head. Using automated exposure control and adj ustment of the mA and/or kV according to patient size, radiation dose was kept as low as reasonably a chievable to obtain optimal diagnostic quality images. DICOM format image data is available electro nically for review and comparison. FINDINGS: There is a large intraperitoneal hemorrhage involving the left frontal lobe. This measures 4 cm in di ameter. Surrounding edema noted. Moderate subdural hemorrhage tracking along the falx projecting towa rds the right of midline. There is a 1.6 cm rounded area of high attenuation involving the left tempo ral tip with extension in the subdural location consistent with a small subdural hematoma and adjacen t intraparenchymal hematoma. Surrounding edema is mild. No midline shift. Some mass effect upon the f rontal horn of the left lateral ventricle. Ventricles are otherwise normal in size. Calvarium is inta ct. Mild mucosal thickening involving the right ethmoid air cells. No air-fluid levels. CONCLUSION: 1. Sites of acute intraparenchymal hemorrhage involving the left frontal lobe and left temporal tip. 2. Acute subdural hemorrhage tracking along the falx anteriorly as well as the middle cranial fossa o n the left. Cristofer Pratt Jr., MD on October 24, 2017 at 6:18 Board Certified Radiologist. This report was verified electronically.
[2017-10-24 07:32] LABS: AUTOMATED NEUTROPHIL # 7.3 TH/MM3 (1.8-7.7); BASOPHIL % 0.5 % (0.0-2.0); HEMATOCRIT 24.8 % (35.0-46.0); HEMOGLOBIN 8.7 GM/DL (11.6-15.3); LYMPH % 8.6 % (9.0-44.0); LYMPHOCYTE # 0.7 TH/MM3 (1.0-4.8); MEAN CELL VOLUME 116.3 FL (80.0-100.0); MEAN CORPUSCULAR HEMOGLOBIN 41.1 PG (27.0-34.0); MEAN CORPUSCULAR HGB CONC 35.3 % (32.0-36.0); MEAN PLATELET VOLUME 8.7 FL (7.0-11.0); MONO % 1.7 % (0.0-8.0); MONOCYTE # 0.1 TH/MM3 (0-0.9); NEUT % 89.2 % (16.0-70.0); PLATELET COUNT 113 TH/MM3 (150-450); RED BLOOD COUNT 2.13 MIL/MM3 (4.00-5.30); RED CELL DISTRIBUTION WIDTH 17.5 % (11.6-17.2); WHITE BLOOD COUNT 8.2 TH/MM3 (4.0-11.0)
[2017-10-24 07:37] LABS: INTERNATIONAL NORMALIZED RATIO 1.3 RATIO; PROTHROMBIN TIME - PATIENT 13.4 SEC (9.8-11.6)
[2017-10-24 07:56] LABS: ALKALINE PHOSPHATASE 114 U/L (45-117); TOTAL BILIRUBIN ADULT 1.1 MG/DL (0.2-1.0); TOTAL PROTEIN 7.6 GM/DL (6.4-8.2)
[2017-10-24 08:03] LABS: ALBUMIN 3.3 GM/DL (3.4-5.0); ALT (GPT) 33 U/L (10-53); AST (GOT) 43 U/L (15-37); BICARBONATE 23.7 MEQ/L (21.0-32.0); BLOOD UREA NITROGEN 53 MG/DL (7-18); CHLORIDE 100 MEQ/L (98-107); CREATININE 1.21 MG/DL (0.50-1.00); GLOMERULAR FILTRATION RATE 43 ML/MIN (>89); GLUCOSE,RANDOM 140 MG/DL (74-106); SODIUM (NA) 137 MEQ/L (136-145)
[2017-10-24] MEDS: FAMOTIDINE 20 MG/2 ML VIAL IV PUSH SCH ×2 (08:39→21:19)
[2017-10-24] MEDS ORDERED: FAMOTIDINE 20 MG/2 ML VIAL IV PUSH SCH (09:00)
[2017-10-24] MEDS: niCARdipine 25 MG/NS 250 ML Vial2Bag or IV room IV PRN ×10 (09:28→15:45)
[2017-10-24] MEDS: CARVEDILOL 12.5 MG TAB PO SCH ×2 (11:45→21:00)
[2017-10-24] MEDS: LOSARTAN 50 MG TAB PO SCH (11:45)
[2017-10-24] MEDS: ISOSORBIDE MONONITRATE 30 MG CR TAB (IMDUR) PO SCH (11:45)
[2017-10-24] MEDS: TORSEMIDE 20 MG TAB PO SCH (13:00)
[2017-10-24] MEDS: cloNIDine HCL 0.2 MG TAB PO SCH ×2 (14:00→21:19)
--- NOTE | 2017-10-24 14:04 | PD.CONS ---
History of Present Illness Service Neurosurgery Consult Requested By Dental Appliance Fixer-Dr. Santos Reason for Consult Intracranial hemorrhage Primary Care Physician Unknown Diagnoses: History of Present Illness 82-year-old female recently admitted to [facility] 09/19/2017 after she sustained a anterior medial right frontal hemorrhagic contusion after a fall in a parking lot. She was seen by neurosurgery and managed conservatively. She was noted to have myelodysplasia with anemia and thrombocytopenia was seen by hematology and given initial packed cells and platelets. The patient presented back to [facility] emergency room earlier today with acute onset aphasia. CT scan revealed a new left frontal parenchymal intracranial hemorrhage. She was transferred back to [facility] for neurosurgery evaluation. Initial blood pressure on arrival at this facility 170s systolic. No seizures reported. Discussion with the patient's daughter indicates that the patient fell earlier this past week and was taken back to the emergency room for evaluation. She fell again twice yesterday, without definite loss of consciousness. However yesterday afternoon and evening she had a fairly rapid decline in her speech. Review of Systems The patient is aphasic and cannot provide review of systems. Past Family Social History Allergies: Coded Allergies: NSAIDS (Non-Steroidal Anti-Inflamma (Verified Allergy, Severe, Ulcers, ) stomach bleeding and ulcers aliskiren (Verified Allergy, Severe, Cough, 09/19/17) cough, diarrhea, upset stomach amlodipine (Verified Allergy, Severe, Insomnia, 09/19/17) difficulty sleeping, heavy heart beat, muscle and joint pain hydralazine (Verified Allergy, Severe, Rash, 09/19/17) rash around mouth lisinopril (Verified Allergy, Severe, Nausea/Vomiting, 09/19/17) lightheaded, nausea, sore throat nisoldipine (Verified Allergy, Severe, Rash, 09/19/17) Rash olmesartan (Verified Allergy, Severe, Chills, 09/19/17) sore throat, diarrhea, chills and fever ramipril (Verified Allergy, Severe, Joint Pain, 09/19/17) sore throat, muscle and joint pain sulfamethoxazole (Verified Allergy, Severe, Appetite Changes(Inc/Dec), ) loss of appetite, nausea, and muscle weakness trimethoprim (Verified Allergy, Severe, Appetite Changes(Inc/Dec), 09/19/17 ) loss of appetite, nausea, and muscle weakness Past Medical History Hypertension COPD CHF 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 History of breast cancer Past Surgical History Laparotomy Cholecystectomy Reported Medications Reported Meds & Active Scripts Active Demadex (Torsemide) 20 Mg Tab 20 Mg PO DAILY Catapres (Clonidine) 0.2 Mg Tab 0.2 Mg PO Q8HR Reported [place] (Hydrocodone-Acetaminophen) 5 Mg-325 Mg Tab 1 Tab PO Q6H PRN Pepcid (Famotidine) 20 Mg Tab 20 Mg PO BID PRN Coq-10 (Coenzyme Q10 (Ubidecarenone)) 50 Mg Cap 100 Mg PO BID Biotin 5 Mg Cap 5 Mg PO DAILY Vitamin D-1000 (Cholecalciferol) 1,000 Unit Tab 1,000 Units PO DAILY Multiple Vitamin 1 Tab 1 Tab PO DAILY Synthroid (Levothyroxine Sodium) 50 Mcg Tab 50 Mcg PO DAILY Atorvastatin (Atorvastatin Calcium) 20 Mg Tab 20 Mg PO HS Klor-Con 10 (Potassium Chloride) 10 Meq Tab 10 Meq PO DAILY Magnesium Oxide 400 Mg Tab 400 Mg PO BID Losartan (Losartan Potassium) 100 Mg Tab 100 Mg PO DAILY Isosorbide Mononitrate ER (Isosorbide Mononitrate) 30 Mg Jeimy 30 Mg PO DAILY Carvedilol 25 Mg Tab 25 Mg PO BID Allopurinol 100 Mg Tab 100 Mg PO DAILY Family History Unobtainable from patient Social History No history of significant cigarette use or alcohol according to previous admission records. Physical Exam Vital Signs Vital Signs Date Time Temp Pulse Resp B/P (MAP) Pulse Ox O2 Delivery O2 Flow Rate FiO2 10/24/17 10:00 96 10/24/17 09:54 95 Nasal Cannula 2.00 10/24/17 09:28 96 123/58 10/24/17 08:00 98.9 100 22 125/59 (81) 97 10/24/17 08:00 95 10/24/17 07:00 98 Nasal Cannula 2.00 10/24/17 07:00 102 166/77 10/24/17 05:34 105 10/24/17 05:00 97.8 105 24 162/80 (107) 100 Physical Exam GENERAL: This is a well-nourished, well-developed patient, no apparent distress. SKIN: No abrasions, contusion, rash noted. Skin warm and dry. HEAD: Atraumatic. Normocephalic. No temporal or scalp tenderness. EYES: Sclerae are clear and nonicteric ENT: No facial edema or ecchymosis except slight left periorbital edema. No CSF otorrhea or rhinorrhea. No palpable facial fracture or deformity. NECK: Trachea midline. No cervical spine tenderness. CARDIOVASCULAR: Regular rate and rhythm without murmurs, gallops, or rubs. RESPIRATORY: Clear to auscultation. Breath sounds equal bilaterally. No wheezes , rales, or rhonchi. GASTROINTESTINAL: Abdomen soft, non-tender, nondistended. No hepato-splenomegaly , or palpable masses. No guarding. MUSCULOSKELETAL: Extremities without cyanosis, or edema. No joint tenderness, or edema noted. No calf tenderness. Dorsalis pedis pulses 2+ bilateral NEUROLOGICAL: Awake and alert Mostly aphasic. She said yes a couple of times during my exam. She does follow most simple commands. She seems to be able to give appropriate yes and no responses by shaking her head in response to simple questions. Pupils are equal and reactive to accommodation. Extra-ocular movements, visual flores to confrontation, facial sensorimotor, tongue, palate, sternocleidomastoid testing, hearing to finger rub testing, and bilateral shoulder shrug are all intact. Sensation is intact to light touch in all extremities Strength normal major flexion and extension groups all extremities Sofie's absent bilaterally No ankle clonus Plantar responses absent bilateral Fine motor movements intact upper extremities Laboratory Laboratory Tests Test 10/24/17 06:40 10/24/17 07:00 Nasal Screen MRSA (PCR) MRSA NOT DETECTED White Blood Count 8.2 Red Blood Count 2.13 Hemoglobin 8.7 Hematocrit 24.8 Mean Corpuscular Volume 116.3 Mean Corpuscular Hemoglobin 41.1 Mean Corpuscular Hemoglobin Concent 35.3 Red Cell Distribution Width 17.5 Platelet Count 113 Mean Platelet Volume 8.7 Neutrophils (%) (Auto) 89.2 Lymphocytes (%) (Auto) 8.6 Monocytes (%) (Auto) 1.7 Eosinophils (%) (Auto) 0.0 Basophils (%) (Auto) 0.5 Neutrophils # (Auto) 7.3 Lymphocytes # (Auto) 0.7 Monocytes # (Auto) 0.1 Eosinophils # (Auto) 0.0 Basophils # (Auto) 0.0 CBC Comment DIFF FINAL Differential Comment Prothrombin Time 13.4 Prothromb Time International Ratio 1.3 Activated Partial Thromboplast Time 23.6 Blood Urea Nitrogen 53 Creatinine 1.21 Random Glucose 140 Total Protein 7.6 Albumin 3.3 Calcium Level 9.0 Alkaline Phosphatase 114 Aspartate Amino Transf (AST/SGOT) 43 Alanine Aminotransferase (ALT/SGPT) 33 Total Bilirubin 1.1 Sodium Level 137 Potassium Level 4.0 Chloride Level 100 Carbon Dioxide Level 23.7 Anion Gap 13 Estimat Glomerular Filtration Rate 43 Lactic Acid Level 1.1 Prealbumin 25 Result Diagram: 10/24/17 0700 10/24/17 0700 Imaging 10/24/2017 CT scan head images reviewed by the undersigned. The study reveals moderate left frontal parenchymal hemorrhage with acute right frontal mesial parenchymal and parafalcine subdural hematoma. No significant midline shift. No hydrocephalus. Head CT 10/24/17 0000 Signed Impressions: Service Date/Time: Tuesday, October 24, 2017 06:06 - CONCLUSION: 1. Sites of acute intraparenchymal hemorrhage involving the left frontal lobe and left temporal tip. 2. Acute subdural hemorrhage tracking along the falx anteriorly as well as the middle cranial fossa on the left. Cristofer Pratt Jr., MD Assessment and Plan Assessment and Plan Impression: 1.New left frontal intraparenchymal hemorrhage and right mesial frontal- parafalcine parenchymal and subdural hematoma in patient recently admitted for anterior right frontal hemorrhagic contusion after a fall. 2. Hypertension 3. Myelodysplasia 4. Chronic kidney disease-stage II Plan: Patient will continue conservative treatment and observation for the intracranial hemorrhage. Close monitoring of blood pressure, neurologic checks. Follow-up hemoglobin, platelet. Monitor sodium. Discussed at length with patient's daughter intensive care unit today Discussed with energy infrastructure engineer Vivek Freire MD Oct 24, 2017 14:04
[2017-10-24] MEDS: niCARdipine INJ 50 MG in SODIUM CHLORID 0.9% 500 ML INJ 480 ML IV PRN ×2 (16:37→20:17)
--- NOTE | 2017-10-24 17:54 | HHI.CCPN ---
Subjective Remarks/Hospital Course This is an 82yF who was recently at our facility in 09/2017 for a traumatic ICH who presented to [facility] with acute onset of aphasia and was found to have a large left frontal spontaneous intraparenchymal hemorrhage. She is transferred to [facility] for our stroke and neurosurgical services. I evaluated the patient upon arrival to the ICU from [facility]. Her BP is 170s systolic on my arrival. We immediately started nicardipine infusion to target a SBP < 140. Due to her expressive aphasia, no information is available from the patient and ROS is unobtainable. The remainder of the medical history is obtained from the our records from 09/2017. 10/24 1730 hours: Spontaneous bleed is left-sided and has affected speech in this right-handed woman. Patient has become a little confused during the day and is requiring restraints to prevent self removal of medical devices. She continues to move 4 limbs with strength and purpose. Blood pressure is well controlled in the 120 range. Neurosurgical service has evaluated in the preferences for conservative management at this point. Objective Vital Signs Date Time Temp Pulse Resp B/P (MAP) Pulse Ox O2 Delivery O2 Flow Rate FiO2 10/24/17 16:37 95 121/57 10/24/17 09:54 95 Nasal Cannula 2.00 10/24/17 08:00 98.9 22 Intake and Output 10/24/17 10/24/17 10/25/17 08:00 16:00 00:00 Intake Total 250 ml Balance 250 ml Result Diagram: 10/24/17 0700 10/24/[address] head 10/23: large left frontal intraparenchymal hemorrhage. Objective Remarks gen: Mildly agitated elderly female, lying in bed. heent: Atraumatic. pupils are 2 mm, bilaterally equal, reactive, round, conjugate. mucous membranes moist. neck: Airway widely patent, trachea midline. No obstructive noises. chest: Clear breath sounds bilaterally, equal chest rise. room air. cv: [place] tones, normal rate, regular rhythm in the 90s, sinus by telemetry. abd: Soft, nontender, nondistended. no guarding. Bowel sounds active. extr: Warm, well-perfused. No peripheral edema. distal pulses 2+. neuro: RASS 0. looking around, tracks with eyes. Appears alert, dense expressive aphasia. does follow commands x 4 and moves all extremities with good strength. Receptive language appears to be intact. A/P Assessment and Plan Assessment: 82yF with a prior traumatic intracerebral hemorrhage presents now with a spontaneous large left frontal intraparenchymal hemorrhage with dense expressive aphasia. will repeat head CT. aggressively treat hypertension. check labs. consult neurosurgery for their opinion. Critically ill with large ICH. Active Problems: Large left frontal Intraparenchymal hemorrhage Dense expressive aphasia Hypertensive emergency Plan: nicardipine, hydralazine, labetalol prn for goal sbp < 140 neurosurgery consultation -conservative therapy for now stat repeat head CT to eval for evolution of the bleed -no change from outside scans hold home PO meds speech eval for swallowing q1h neuro checks ssi NPO NS @ 70cc/hr pepcid iv SCDs hold pharmacologic DVT prophylaxis. Overall impression: The patient remains critically ill with an unstable neurological condition. This is a large left-sided parenchymal hemorrhage and she remains at risk for rapid neurological deterioration. Critical care 39 minutes aside from procedures. Trace Reyes MD Oct 24, 2017 17:54
[2017-10-24] MEDS: ATORVASTATIN 20 MG TAB PO SCH (21:00)
[2017-10-25] VITALS (10 sets, daily range): BP systolic 117–124; BP diastolic 56–60; PULSE 63–94; RESP 18–27; TEMP 98–98.7; O2SAT 94–100
[2017-10-25] MEDS: niCARdipine INJ 50 MG in SODIUM CHLORID 0.9% 500 ML INJ 480 ML IV PRN (00:34)
[2017-10-25] MEDS: CHLORHEXIDINE GLUCONATE 2 % 1 PACK (2 CLOTHS) TOP SCH (04:00)
[2017-10-25] MEDS: INSULIN NovoLIN REGULAR SUPPLEMENTAL SCALE SQ SCH ×4 (06:00→18:00)
[2017-10-25] MEDS: cloNIDine HCL 0.2 MG TAB PO SCH ×3 (06:00→21:09)
[2017-10-25] MEDS: LEVOTHYROXINE SODIUM 50 MCG TAB PO SCH (06:00)
[2017-10-25 06:12] LABS: HEMATOCRIT 22.3 % (35.0-46.0); HEMOGLOBIN 7.6 GM/DL (11.6-15.3); MEAN CORPUSCULAR HGB CONC 34.2 % (32.0-36.0); MEAN PLATELET VOLUME 9.1 FL (7.0-11.0); PLATELET COUNT 109 TH/MM3 (150-450); RED BLOOD COUNT 1.91 MIL/MM3 (4.00-5.30); RED CELL DISTRIBUTION WIDTH 18.1 % (11.6-17.2); WHITE BLOOD COUNT 6.7 TH/MM3 (4.0-11.0)
[2017-10-25 06:56] LABS: CALCIUM 8.7 MG/DL (8.5-10.1); CREATININE 2.12 MG/DL (0.50-1.00)
[2017-10-25] MEDS: SODIUM CHLOR 0.9% 1000 ML INJ 1,000 ML IV SCH ×2 (08:00→21:12)
--- NOTE | 2017-10-25 08:25 | HHI.CCPN ---
Subjective Remarks/Hospital Course This is an 82yF who was recently at our facility in 09/2017 for a traumatic ICH who presented to [facility] with acute onset of aphasia and was found to have a large left frontal spontaneous intraparenchymal hemorrhage. She is transferred to [facility] for our stroke and neurosurgical services. I evaluated the patient upon arrival to the ICU from [facility]. Her BP is 170s systolic on my arrival. We immediately started nicardipine infusion to target a SBP < 140. Due to her expressive aphasia, no information is available from the patient and ROS is unobtainable. The remainder of the medical history is obtained from the our records from 09/2017. 10/24 1730 hours: Spontaneous bleed is left-sided and has affected speech in this right-handed woman. Patient has become a little confused during the day and is requiring restraints to prevent self removal of medical devices. She continues to move 4 limbs with strength and purpose. Blood pressure is well controlled in the 120 range. Neurosurgical service has evaluated in the preferences for conservative management at this point. 10/25: Patient's speech is improved today. Our attempts to reduce edema in her brain have produced a prerenal azotemia and we will need to gingerly hydrate her today. She has a long-standing pancytopenia and will require a 1 unit transfusion of red blood cells to improve oxygen carrying capacity. Objective Vital Signs Date Time Temp Pulse Resp B/P (MAP) Pulse Ox O2 Delivery O2 Flow Rate FiO2 10/25/17 07:00 97 Room Air 10/25/17 06:00 85 10/25/17 04:00 98.0 22 121/57 (78) 10/24/17 20:37 2.00 Result Diagram: 10/25/17 0521 10/25/[address] head 10/23: large left frontal intraparenchymal hemorrhage. Objective Remarks gen: Mildly agitated elderly female, lying in bed, constant leg motion. heent: Atraumatic. pupils are 2 mm, bilaterally equal, reactive, round, conjugate. mucous membranes moist. neck: Airway widely patent, trachea midline. No obstructive noises. chest: Clear breath sounds bilaterally, equal chest rise. room air well tolerated cv: [place] tones, normal rate, regular rhythm in the 80s, sinus by telemetry. abd: Soft, nontender, nondistended. no guarding. Bowel sounds active. extr: Warm, well-perfused. No peripheral edema. distal pulses 2+. neuro: RASS 0. looking around, tracks with eyes. Appears alert, dense expressive aphasia largely resolved. does follow commands x 4 and moves all extremities with good strength. Receptive language appears to be intact. A/P Assessment and Plan Assessment: 82yF with a prior traumatic intracerebral hemorrhage presents now with a spontaneous large left frontal intraparenchymal hemorrhage with dense expressive aphasia. will repeat head CT. aggressively treat hypertension. check labs. consult neurosurgery for their opinion.Large ICH with resolving expressive aphasia. Active Problems: Large left frontal Intraparenchymal hemorrhage Dense expressive aphasia Hypertensive emergency Prerenal azotemia Plan: nicardipine, hydralazine, labetalol prn for goal sbp < 140 neurosurgery consultation -conservative therapy for now stat repeat head CT to eval for evolution of the bleed -no change from outside scans hold home PO meds Repeat speech eval for swallowing q1h neuro checks ssi NPO NS @ 75cc/hr pepcid iv SCDs hold pharmacologic DVT prophylaxis. Overall impression: The patient remains stable with an improving neurological condition. This is a large left-sided frontal lobe parenchymal hemorrhage. We will get a PT and OT evaluation for possible rehab placement. She failed her first swallow evaluation and we will try again today. Trace Reyes MD Oct 25, 2017 08:25
[2017-10-25] MEDS: LOSARTAN 50 MG TAB PO SCH (11:14)
[2017-10-25] MEDS: TORSEMIDE 20 MG TAB PO SCH (11:14)
[2017-10-25] MEDS: FAMOTIDINE 20 MG/2 ML VIAL IV PUSH SCH ×2 (11:14→21:10)
[2017-10-25] MEDS: ISOSORBIDE MONONITRATE 30 MG CR TAB (IMDUR) PO SCH (11:14)
[2017-10-25] MEDS: CARVEDILOL 12.5 MG TAB PO SCH ×2 (11:14→21:10)
--- NOTE | 2017-10-25 11:33 | HHI.NSPN ---
(Ethan Taylor) History Chief Complaint: Unable to obtain due to patient's mental status. (Ethan Taylor) Interval History 10/24: 82-year-old female recently admitted to [facility] 09/19/2017 after she sustained a anterior medial right frontal hemorrhagic contusion after a fall in a parking lot. She was seen by neurosurgery and managed conservatively. She was noted to have myelodysplasia with anemia and thrombocytopenia was seen by hematology and given initial packed cells and platelets. The patient presented back to [facility] emergency room earlier today with acute onset aphasia. CT scan revealed a new left frontal parenchymal intracranial hemorrhage. She was transferred back to [facility] for neurosurgery evaluation. Initial blood pressure on arrival at this facility 170s systolic. No seizures reported. Discussion with the patient's daughter indicates that the patient fell earlier this past week and was taken back to the emergency room for evaluation. She fell again twice yesterday, without definite loss of consciousness. However yesterday afternoon and evening she had a fairly rapid decline in her speech. 10/25: The patient is awake and alert when seen. She is having mild to moderate respiratory effort on a nasal cannula due to her COPD. She will contradict a prior response if the same question is worded differently. She is moving all extremities spontaneously and purposefully and follows commands. She does seem to be hypersensitive to touch of the feet otherwise there are no sensorimotor deficits noted. (Ethan Taylor) System Review Comments Unable to obtain due to patient's mental status. (Ethan Taylor) Exam Results 10/23/17 10/23/17 10/24/17 10/24/17 10/25/17 10/25/17 06:00 18:00 06:00 18:00 06:00 18:00 Intake Total 1780 ml Balance 1780 ml Intake Oral 0 ml IV Total 1780 ml # Voids 2 3 # Bowel Movements 0 2 Vital Signs Date Time Temp Pulse Resp B/P (MAP) Pulse Ox O2 Delivery O2 Flow Rate FiO2 10/25/17 10:06 95 Nasal Cannula 2.00 10/25/17 07:00 97 Room Air 10/25/17 06:00 85 10/25/17 04:00 90 10/25/17 04:00 98.0 86 22 121/57 (78) 94 10/25/17 02:00 94 10/25/17 00:34 85 114/68 10/25/17 00:00 92 10/25/17 00:00 98.0 81 25 118/56 (76) 98 10/24/17 22:00 90 10/24/17 20:37 98 Nasal Cannula 2.00 10/24/17 20:17 106 111/56 10/24/17 20:00 98.5 90 22 107/54 (71) 99 10/24/17 20:00 90 10/24/17 19:00 96 Nasal Cannula 2.00 10/24/17 18:00 94 10/24/17 16:37 95 121/57 10/24/17 16:00 98.7 94 23 112/56 (74) 99 10/24/17 16:00 94 10/24/17 15:45 92 121/54 10/24/17 14:00 96 116/51 10/24/17 14:00 96 10/24/17 12:45 96 112/59 10/24/17 12:00 94 10/24/17 12:00 98.5 94 22 113/56 (75) 99 10/24/17 11:00 108 124/59 10/24/17 10:00 96 10/24/17 09:54 95 Nasal Cannula 2.00 10/24/17 09:28 96 123/58 10/24/17 08:00 98.9 100 22 125/59 (81) 97 10/24/17 08:00 95 10/24/17 07:00 98 Nasal Cannula 2.00 10/24/17 07:00 102 166/77 10/24/17 05:34 105 10/24/17 05:00 97.8 105 24 162/80 (107) 100 (Ethan Taylor) Physical Examination GENERAL: Awake & alert. Affect equivocal, readily interacts. Mild to moderate respiratory effort but does not appear in distress. HEENT: Normocephalic, atraumatic. PERRLA 2 mm brisk, EOMI. MMM & pink, tongue midline to protrusion. MUSCULOSKELETAL: TRAMMELL spontaneously & purposefully. Ecchymosis to RUE. NEUROLOGICAL: Awake & alert. Oriented to person only. Speech clear when she verbalises using 1 or 2 words. Expressive vs receptive aphasia. Patient will contradict self if asked same question in different format. Did follow simple commands. CN II through XII appear grossly intact. PERRLA 2 mm brisk, EOMI. Tongue midline to protrusion. Hypersensitive to touch of feet o/w sensation intact to light touch to extremities. Muscle strength to all major flexion & extension muscle groups appear normal. (Ethan Taylor) Lab, Micro, Other Results Recent Impressions Head CT 10/24/17 0000 Signed Impressions: Service Date/Time: Tuesday, October 24, 2017 06:06 - CONCLUSION: 1. Sites of acute intraparenchymal hemorrhage involving the left frontal lobe and left temporal tip. 2. Acute subdural hemorrhage tracking along the falx anteriorly as well as the middle cranial fossa on the left. Cristofer Pratt Jr., MD Laboratory Tests Test 10/24/17 06:40 10/24/17 07:00 10/25/17 05:21 Nasal Screen MRSA (PCR) MRSA NOT DETECTED White Blood Count 8.2 TH/MM3 6.7 TH/MM3 Red Blood Count 2.13 MIL/MM3 1.91 MIL/MM3 Hemoglobin 8.7 GM/DL 7.6 GM/DL Hematocrit 24.8 % 22.3 % Mean Corpuscular Volume 116.3 FL 117.0 FL Mean Corpuscular Hemoglobin 41.1 PG 40.0 PG Mean Corpuscular Hemoglobin Concent 35.3 % 34.2 % Red Cell Distribution Width 17.5 % 18.1 % Platelet Count 113 TH/MM3 109 TH/MM3 Mean Platelet Volume 8.7 FL 9.1 FL Neutrophils (%) (Auto) 89.2 % Lymphocytes (%) (Auto) 8.6 % Monocytes (%) (Auto) 1.7 % Eosinophils (%) (Auto) 0.0 % Basophils (%) (Auto) 0.5 % Neutrophils # (Auto) 7.3 TH/MM3 Lymphocytes # (Auto) 0.7 TH/MM3 Monocytes # (Auto) 0.1 TH/MM3 Eosinophils # (Auto) 0.0 TH/MM3 Basophils # (Auto) 0.0 TH/MM3 CBC Comment DIFF FINAL Differential Comment Prothrombin Time 13.4 SEC Prothromb Time International Ratio 1.3 RATIO Activated Partial Thromboplast Time 23.6 SEC Blood Urea Nitrogen 53 MG/DL 69 MG/DL Creatinine 1.21 MG/DL 2.12 MG/DL Random Glucose 140 MG/DL 168 MG/DL Total Protein 7.6 GM/DL Albumin 3.3 GM/DL Calcium Level 9.0 MG/DL 8.7 MG/DL Alkaline Phosphatase 114 U/L Aspartate Amino Transf (AST/SGOT) 43 U/L Alanine Aminotransferase (ALT/SGPT) 33 U/L Total Bilirubin 1.1 MG/DL Sodium Level 137 MEQ/L 138 MEQ/L Potassium Level 4.0 MEQ/L 4.2 MEQ/L Chloride Level 100 MEQ/L 104 MEQ/L Carbon Dioxide Level 23.7 MEQ/L 22.0 MEQ/L Anion Gap 13 MEQ/L 12 MEQ/L Estimat Glomerular Filtration Rate 43 ML/MIN 22 ML/MIN Lactic Acid Level 1.1 mmol/L Prealbumin 25 MG/DL (Ethan Taylor) Medical Decision Making Impression and Plan Impression: 1. New left frontal intraparenchymal hemorrhage and right mesial frontal- parafalcine parenchymal and subdural hematoma in patient recently admitted for anterior right frontal hemorrhagic contusion after a fall. 2. Hypertension 3. Myelodysplasia 4. Chronic kidney disease-stage II The patient is doing fairly well when seen. She is hypersensitive to touch to the feet but otherwise she does not have any evident sensorimotor deficits. She is confused and has aphasia. When asked the same thing in a different way she will contradict her prior response. Verbalise with 1 or 2 words but mostly nods her head. Intermittent tachycardia. Reviewed labs for today. Decrease in haemoglobin & platelet levels. Sodium 138. Worsening of renal function. Plan: Primary & critical care management per Risk Manager. Will manage conservatively. Neuro check. Stat CT brain for any decline in neuro status. Monitor blood pressure. Monitor sodium. Monitor haemoglobin & platelet levels. Physical, Occupational & Speech Therapy eval & tx. (Ethan Taylor) Attending Statement The exam, history, and the medical decision-making described in the above note were completed with the assistance of the mid-level provider. I reviewed and agree with the findings presented. I attest that I had a [id number] encounter with the patient on the same day, and personally performed and documented my assessment and findings in the medical record On my examination of 10/25/2017, patient blood pressure mostly well controlled. She remains awake and alert. Moderate expressive speech deficit. She is able to say her name. She follows simple commands well. Moves all extremities well. Stable left intracranial hemorrhage in patient with recent admission for primarily right intracranial hemorrhage. Advance diet and activity Physical therapy Continue close ISC neuro checks and vital signs. (Vivek Freire MD) Ethan Taylor Oct 25, 2017 11:33 Vivek Freire MD Oct 26, 2017 16:14
[2017-10-25] MEDS: ATORVASTATIN 20 MG TAB PO SCH (21:10)
[2017-10-26] VITALS (11 sets, daily range): BP systolic 110–122; BP diastolic 54–60; PULSE 50–72; RESP 12–24; TEMP 96–99; O2SAT 95–100
[2017-10-26] MEDS: INSULIN NovoLIN REGULAR SUPPLEMENTAL SCALE SQ SCH ×4 (00:12→17:40)
[2017-10-26] MEDS: CHLORHEXIDINE GLUCONATE 2 % 1 PACK (2 CLOTHS) TOP SCH (03:45)
[2017-10-26 04:22] LABS: HEMATOCRIT 23.5 % (35.0-46.0); HEMOGLOBIN 7.8 GM/DL (11.6-15.3); MEAN CELL VOLUME 110.1 FL (80.0-100.0); MEAN CORPUSCULAR HEMOGLOBIN 36.7 PG (27.0-34.0); MEAN CORPUSCULAR HGB CONC 33.3 % (32.0-36.0); PLATELET COUNT 79 TH/MM3 (150-450); RED BLOOD COUNT 2.13 MIL/MM3 (4.00-5.30); WHITE BLOOD COUNT 4.5 TH/MM3 (4.0-11.0)
[2017-10-26 04:44] LABS: BICARBONATE 21.1 MEQ/L (21.0-32.0); CALCIUM 8.1 MG/DL (8.5-10.1); CREATININE 2.45 MG/DL (0.50-1.00)
[2017-10-26] MEDS: cloNIDine HCL 0.2 MG TAB PO SCH ×3 (04:49→22:25)
[2017-10-26] MEDS: LEVOTHYROXINE SODIUM 50 MCG TAB PO SCH (04:49)
[2017-10-26] MEDS: TORSEMIDE 20 MG TAB PO SCH (09:26)
[2017-10-26] MEDS: CARVEDILOL 12.5 MG TAB PO SCH ×2 (09:26→20:30)
[2017-10-26] MEDS: FAMOTIDINE 20 MG/2 ML VIAL IV PUSH SCH ×2 (09:26→20:31)
[2017-10-26] MEDS: ISOSORBIDE MONONITRATE 30 MG CR TAB (IMDUR) PO SCH (09:26)
[2017-10-26] MEDS: LOSARTAN 50 MG TAB PO SCH (09:26)
--- NOTE | 2017-10-26 10:04 | HHI.NSPN ---
(Ethan Taylor) History Chief Complaint: None (Ethan Taylor) Interval History 10/24: 82-year-old female recently admitted to [facility] 09/19/2017 after she sustained a anterior medial right frontal hemorrhagic contusion after a fall in a parking lot. She was seen by neurosurgery and managed conservatively. She was noted to have myelodysplasia with anemia and thrombocytopenia was seen by hematology and given initial packed cells and platelets. The patient presented back to [facility] emergency room earlier today with acute onset aphasia. CT scan revealed a new left frontal parenchymal intracranial hemorrhage. She was transferred back to [facility] for neurosurgery evaluation. Initial blood pressure on arrival at this facility 170s systolic. No seizures reported. Discussion with the patient's daughter indicates that the patient fell earlier this past week and was taken back to the emergency room for evaluation. She fell again twice yesterday, without definite loss of consciousness. However yesterday afternoon and evening she had a fairly rapid decline in her speech. 10/25: The patient is awake and alert when seen. She is having mild to moderate respiratory effort on a nasal cannula due to her COPD. She will contradict a prior response if the same question is worded differently. She is moving all extremities spontaneously and purposefully and follows commands. She does seem to be hypersensitive to touch of the feet otherwise there are no sensorimotor deficits noted. 10/26: This morning the patient remains awake and alert. She does not appear to have an increased respiratory effort. She denied any headache, dizziness or double or blurry vision. She also had no pain, numbness or tingling to the extremities. She is in soft wrist restraints. She spontaneously and purposefully moves all extremities. She continues to be confused. (Ethan Taylor) Exam Results 10/24/17 10/24/17 10/25/17 10/25/17 10/26/17 10/26/17 06:00 18:00 06:00 18:00 06:00 18:00 Intake Total 1780 ml 405 ml 1350 ml Output Total 30 ml 550 ml Balance 1780 ml 375 ml 800 ml Intake Oral 0 ml IV Total 1780 ml 1350 ml Packed Cells 400 ml Blood Product IV Normal Saline Flush 5 ml Output Urine Total 550 ml Stool Total 30 ml # Voids 2 3 3 # Bowel Movements 0 2 0 Vital Signs Date Time Temp Pulse Resp B/P (MAP) Pulse Ox O2 Delivery O2 Flow Rate FiO2 10/26/17 07:51 100 Nasal Cannula 2.00 10/26/17 07:00 100 Nasal Cannula 2.00 10/26/17 06:00 51 10/26/17 04:00 72 10/26/17 04:00 99.0 72 24 118/58 (78) 98 10/26/17 02:00 62 10/26/17 00:00 62 10/26/17 00:00 98.4 62 20 112/55 (74) 100 10/25/17 22:00 63 10/25/17 20:00 98.7 76 19 121/57 (78) 100 10/25/17 20:00 76 10/25/17 19:00 98 Nasal Cannula 2.00 10/25/17 16:00 98.4 84 27 117/56 (76) 97 10/25/17 12:00 98.3 69 23 123/60 (81) 96 10/25/17 10:06 95 Nasal Cannula 2.00 10/25/17 08:00 98.2 89 18 124/59 (80) 98 10/25/17 07:00 97 Room Air 10/25/17 06:00 85 10/25/17 04:00 90 10/25/17 04:00 98.0 86 22 121/57 (78) 94 10/25/17 02:00 94 10/25/17 00:34 85 114/68 10/25/17 00:00 92 10/25/17 00:00 98.0 81 25 118/56 (76) 98 10/24/17 22:00 90 10/24/17 20:37 98 Nasal Cannula 2.00 10/24/17 20:17 106 111/56 10/24/17 20:00 98.5 90 22 107/54 (71) 99 10/24/17 20:00 90 10/24/17 19:00 96 Nasal Cannula 2.00 10/24/17 18:00 94 10/24/17 16:37 95 121/57 10/24/17 16:00 98.7 94 23 112/56 (74) 99 10/24/17 16:00 94 10/24/17 15:45 92 121/54 10/24/17 14:00 96 116/51 10/24/17 14:00 96 10/24/17 12:45 96 112/59 10/24/17 12:00 94 10/24/17 12:00 98.5 94 22 113/56 (75) 99 10/24/17 11:00 108 124/59 10/24/17 10:00 96 10/24/17 09:54 95 Nasal Cannula 2.00 10/24/17 09:28 96 123/58 10/24/17 08:00 98.9 100 22 125/59 (81) 97 10/24/17 08:00 95 10/24/17 07:00 98 Nasal Cannula 2.00 10/24/17 07:00 102 166/77 10/24/17 05:34 105 10/24/17 05:00 97.8 105 24 162/80 (107) 100 (Ethan Taylor) Physical Examination GENERAL: Awake & alert. Affect equivocal, readily interacts. Appears comfortable and not in any distress. In soft wrist restraints. HEENT: Normocephalic, atraumatic. PERRLA 2 mm brisk, EOMI. MMM & pink, tongue midline to protrusion. MUSCULOSKELETAL: TRAMMELL spontaneously & purposefully. Ecchymosis & edema to BUE. NEUROLOGICAL: Awake & alert. Oriented to person & year only. Speech clear but verbalises using 1 or 2 words. Did follow simple commands. CN II through XII appear grossly intact. PERRLA 2 mm brisk, EOMI. Tongue midline to protrusion. Sensation intact to light touch to extremities. Muscle strength to all major flexion & extension muscle groups appear normal. (Ethan Taylor) Lab, Micro, Other Results Recent Impressions Head CT 10/24/17 0000 Signed Impressions: Service Date/Time: Tuesday, October 24, 2017 06:06 - CONCLUSION: 1. Sites of acute intraparenchymal hemorrhage involving the left frontal lobe and left temporal tip. 2. Acute subdural hemorrhage tracking along the falx anteriorly as well as the middle cranial fossa on the left. Cristofer Pratt Jr., MD Laboratory Tests Test 10/24/17 06:40 10/24/17 07:00 10/25/17 05:21 10/26/17 02:56 Nasal Screen MRSA (PCR) MRSA NOT DETECTED White Blood Count 8.2 TH/MM3 6.7 TH/MM3 4.5 TH/MM3 Red Blood Count 2.13 MIL/MM3 1.91 MIL/MM3 2.13 MIL/MM3 Hemoglobin 8.7 GM/DL 7.6 GM/DL 7.8 GM/DL Hematocrit 24.8 % 22.3 % 23.5 % Mean Corpuscular Volume 116.3 FL 117.0 FL 110.1 FL Mean Corpuscular Hemoglobin 41.1 PG 40.0 PG 36.7 PG Mean Corpuscular Hemoglobin Concent 35.3 % 34.2 % 33.3 % Red Cell Distribution Width 17.5 % 18.1 % 24.0 % Platelet Count 113 TH/MM3 109 TH/MM3 79 TH/MM3 Mean Platelet Volume 8.7 FL 9.1 FL 9.0 FL Neutrophils (%) (Auto) 89.2 % Lymphocytes (%) (Auto) 8.6 % Monocytes (%) (Auto) 1.7 % Eosinophils (%) (Auto) 0.0 % Basophils (%) (Auto) 0.5 % Neutrophils # (Auto) 7.3 TH/MM3 Lymphocytes # (Auto) 0.7 TH/MM3 Monocytes # (Auto) 0.1 TH/MM3 Eosinophils # (Auto) 0.0 TH/MM3 Basophils # (Auto) 0.0 TH/MM3 CBC Comment DIFF FINAL Differential Comment Prothrombin Time 13.4 SEC Prothromb Time International Ratio 1.3 RATIO Activated Partial Thromboplast Time 23.6 SEC Blood Urea Nitrogen 53 MG/DL 69 MG/DL 78 MG/DL Creatinine 1.21 MG/DL 2.12 MG/DL 2.45 MG/DL Random Glucose 140 MG/DL 168 MG/DL 128 MG/DL Total Protein 7.6 GM/DL Albumin 3.3 GM/DL Calcium Level 9.0 MG/DL 8.7 MG/DL 8.1 MG/DL Alkaline Phosphatase 114 U/L Aspartate Amino Transf (AST/SGOT) 43 U/L Alanine Aminotransferase (ALT/SGPT) 33 U/L Total Bilirubin 1.1 MG/DL Sodium Level 137 MEQ/L 138 MEQ/L 142 MEQ/L Potassium Level 4.0 MEQ/L 4.2 MEQ/L 4.1 MEQ/L Chloride Level 100 MEQ/L 104 MEQ/L 109 MEQ/L Carbon Dioxide Level 23.7 MEQ/L 22.0 MEQ/L 21.1 MEQ/L Anion Gap 13 MEQ/L 12 MEQ/L 12 MEQ/L Estimat Glomerular Filtration Rate 43 ML/MIN 22 ML/MIN 19 ML/MIN Lactic Acid Level 1.1 mmol/L Prealbumin 25 MG/DL (Ethan Taylor) Medical Decision Making Impression and Plan Impression: 1. New left frontal intraparenchymal hemorrhage and right mesial frontal- parafalcine parenchymal and subdural hematoma in patient recently admitted for anterior right frontal hemorrhagic contusion after a fall. 2. Hypertension 3. Myelodysplasia 4. Chronic kidney disease-stage II The patient continues to do well. She has no evident sensorimotor deficits. She remains confused. Bradycardiac this morning. Reviewed labs for today. Haemoglobin essentially stable but decrease in platelet level. Sodium 142. Worsening of renal function. Plan: Primary & critical care management per Rubber Production Machine Operator. Will manage conservatively. Neuro check. Stat CT brain for any decline in neuro status. Monitor blood pressure. Monitor sodium. Monitor haemoglobin & platelet levels. Mobilise patient w/assistance. Physical, Occupational & Speech Therapy eval & tx. (Ethan Taylor) Attending Statement The exam, history, and the medical decision-making described in the above note were completed with the assistance of the mid-level provider. I reviewed and agree with the findings presented. I attest that I had a [id number] encounter with the patient on the same day, and personally performed and documented my assessment and findings in the medical record. On my examination of 10/26/2017 she remains awake and alert. A little less confused today with more fluent speech and better more consistent responses. Follow simple commands well Extraocular movements intact Sensation intact light touch all extremities Strength within normal limits all extremities Stable neurologic exam Stable for floor transfer from a neurosurgical standpoint. (Vivek Freire MD) Ethan Taylor Oct 26, 2017 10:04 Vivek Freire MD Oct 26, 2017 16:19
[2017-10-26] MEDS: SODIUM CHLOR 0.9% 1000 ML INJ 1,000 ML IV SCH (11:24)
--- NOTE | 2017-10-26 17:13 | HHI.PR ---
Subjective Remarks Follow up for intracranial bleed. Patient is currently resting in bed. No acute concerns. Objective Vitals Vital Signs Date Time Temp Pulse Resp B/P (MAP) Pulse Ox O2 Delivery O2 Flow Rate FiO2 10/26/17 12:00 97.2 56 15 116/58 (77) 99 10/26/17 08:00 96.0 58 14 122/57 (78) 99 10/26/17 07:51 100 Nasal Cannula 2.00 10/26/17 07:00 100 Nasal Cannula 2.00 10/26/17 06:00 51 10/26/17 04:00 72 10/26/17 04:00 99.0 72 24 118/58 (78) 98 10/26/17 02:00 62 10/26/17 00:00 62 10/26/17 00:00 98.4 62 20 112/55 (74) 100 10/25/17 22:00 63 10/25/17 20:00 98.7 76 19 121/57 (78) 100 10/25/17 20:00 76 10/25/17 19:00 98 Nasal Cannula 2.00 I/O 10/25/17 10/25/17 10/25/17 10/26/17 10/26/17 10/26/17 07:00 15:00 23:00 07:00 15:00 23:00 Intake Total 5 ml 400 ml 1350 ml Output Total 30 ml 550 ml Balance 5 ml 370 ml 800 ml IV Total 1350 ml Packed Cells 400 ml Blood Product IV Normal Saline Flush 5 ml Output Urine Total 550 ml Stool Total 30 ml # Voids 3 3 # Bowel Movements 2 0 Result Diagram: 10/26/17 0256 10/26/17 0256 Imaging Last Impressions Head CT 10/24/17 0000 Signed Impressions: Service Date/Time: Tuesday, October 24, 2017 06:06 - CONCLUSION: 1. Sites of acute intraparenchymal hemorrhage involving the left frontal lobe and left temporal tip. 2. Acute subdural hemorrhage tracking along the falx anteriorly as well as the middle cranial fossa on the left. Cristofer Pratt Jr., MD Objective Remarks GENERAL: Alert, NAD. SKIN: Warm and dry. HEAD: Normocephalic. EYES: No scleral icterus. No injection or drainage. NECK: Supple, trachea midline. No JVD or lymphadenopathy. CARDIOVASCULAR: Regular rate and rhythm without murmurs, gallops, or rubs. RESPIRATORY: Breath sounds equal bilaterally. No accessory muscle use. GASTROINTESTINAL: Abdomen soft, non-tender, nondistended. MUSCULOSKELETAL: No cyanosis, or edema. BACK: Nontender without obvious deformity. No CVA tenderness. Procedures None A/P Assessment and Plan Ms. Chery is an 82-year-old female who was brought from [facility] due to acute onset of aphasia and radiological finding of large left frontal spontaneous intraparenchymal hemorrhage. She has a history of hypertension, myelodysplasia and chronic kidney disease stage II. Neurosurgery was consulted. Neurosurgery recommended conservative treatment and observation for the ICH. Large left frontal Intraparenchymal hemorrhage Expressive aphasia Hypertension -Continue clonidine 0.2 mg every 8 hours, carvedilol 25 mg twice daily -Continue atorvastatin 20 mg p.o. nightly, isosorbide mononitrate 30 mg daily Acute kidney injury -Creatinine 1.21 on admission. Increase to 2.45. -We will DC torsemide and losartan for now. -BMP in the morning. If creatinine continues to rise, consider consulting nephrology. Full code. SCDs. Ayala Olguin DO Oct 26, 2017 5:13 pm
[2017-10-26] MEDS: ATORVASTATIN 20 MG TAB PO SCH (20:30)
[2017-10-27] VITALS (10 sets, daily range): BP systolic 127–159; BP diastolic 60–71; PULSE 44–52; RESP 13–24; TEMP 96.4–98.6; O2SAT 96–100
[2017-10-27] MEDS: CHLORHEXIDINE GLUCONATE 2 % 1 PACK (2 CLOTHS) TOP SCH (04:00)
[2017-10-27 04:40] LABS: HEMATOCRIT 23.2 % (35.0-46.0); HEMOGLOBIN 7.8 GM/DL (11.6-15.3); MEAN CELL VOLUME 112.3 FL (80.0-100.0); MEAN CORPUSCULAR HEMOGLOBIN 37.6 PG (27.0-34.0); MEAN CORPUSCULAR HGB CONC 33.5 % (32.0-36.0); MEAN PLATELET VOLUME 9.4 FL (7.0-11.0); PLATELET COUNT 60 TH/MM3 (150-450); RED BLOOD COUNT 2.07 MIL/MM3 (4.00-5.30); RED CELL DISTRIBUTION WIDTH 23.3 % (11.6-17.2); WHITE BLOOD COUNT 3.2 TH/MM3 (4.0-11.0)
[2017-10-27 04:49] LABS: BICARBONATE 20.4 MEQ/L (21.0-32.0); CALCIUM 7.8 MG/DL (8.5-10.1); CREATININE 2.64 MG/DL (0.50-1.00)
[2017-10-27] MEDS: cloNIDine HCL 0.2 MG TAB PO SCH ×3 (06:10→22:38)
[2017-10-27] MEDS: SODIUM CHLOR 0.9% 1000 ML INJ 1,000 ML IV SCH ×2 (06:10→14:23)
[2017-10-27] MEDS: LEVOTHYROXINE SODIUM 50 MCG TAB PO SCH (06:10)
[2017-10-27] MEDS: INSULIN NovoLIN REGULAR SUPPLEMENTAL SCALE SQ SCH ×5 (08:00→22:42)
[2017-10-27] MEDS: FAMOTIDINE 20 MG/2 ML VIAL IV PUSH SCH (10:26)
[2017-10-27] MEDS: CARVEDILOL 12.5 MG TAB PO SCH ×2 (10:26→22:37)
[2017-10-27] MEDS: ISOSORBIDE MONONITRATE 30 MG CR TAB (IMDUR) PO SCH (10:26)
--- NOTE | 2017-10-27 11:04 | HHI.NSPN ---
(Ethan Taylor) History Chief Complaint: None (ClaudiaEthan) Interval History 10/24: 82-year-old female recently admitted to [facility] 09/19/2017 after she sustained a anterior medial right frontal hemorrhagic contusion after a fall in a parking lot. She was seen by neurosurgery and managed conservatively. She was noted to have myelodysplasia with anemia and thrombocytopenia was seen by hematology and given initial packed cells and platelets. The patient presented back to [facility] emergency room earlier today with acute onset aphasia. CT scan revealed a new left frontal parenchymal intracranial hemorrhage. She was transferred back to [facility] for neurosurgery evaluation. Initial blood pressure on arrival at this facility 170s systolic. No seizures reported. Discussion with the patient's daughter indicates that the patient fell earlier this past week and was taken back to the emergency room for evaluation. She fell again twice yesterday, without definite loss of consciousness. However yesterday afternoon and evening she had a fairly rapid decline in her speech. 10/25: The patient is awake and alert when seen. She is having mild to moderate respiratory effort on a nasal cannula due to her COPD. She will contradict a prior response if the same question is worded differently. She is moving all extremities spontaneously and purposefully and follows commands. She does seem to be hypersensitive to touch of the feet otherwise there are no sensorimotor deficits noted. 10/26: This morning the patient remains awake and alert. She does not appear to have an increased respiratory effort. She denied any headache, dizziness or double or blurry vision. She also had no pain, numbness or tingling to the extremities. She is in soft wrist restraints. She spontaneously and purposefully moves all extremities. She continues to be confused. 10/27: When seen this morning the patient is sitting up with the bed in the chair mode. She is awake and alert. He had no complaints of headache, dizziness , double or blurry vision or any extremity pain, numbness or tingling. Her respiratory effort is normal. She is oriented to person, place and time and her speech has improved. She is moving all extremities spontaneously and purposefully. (Ethan Taylor) Exam Results 10/25/17 10/25/17 10/26/17 10/26/17 10/27/17 10/27/17 06:00 18:00 06:00 18:00 06:00 18:00 Intake Total 405 ml 1350 ml 1000 ml 2120 ml Output Total 30 ml 550 ml 300 ml Balance 375 ml 800 ml 1000 ml 1820 ml IV Total 1350 ml 1000 ml 2120 ml Packed Cells 400 ml Blood Product IV Normal Saline Flush 5 ml Output Urine Total 550 ml 300 ml Stool Total 30 ml # Voids 3 3 5 # Bowel Movements 2 0 4 Vital Signs Date Time Temp Pulse Resp B/P (MAP) Pulse Ox O2 Delivery O2 Flow Rate FiO2 10/27/17 08:12 100 10/27/17 06:00 45 10/27/17 04:00 46 10/27/17 04:00 97.4 46 24 132/64 (86) 98 10/27/17 02:00 52 10/27/17 00:00 98.6 48 18 127/60 (82) 100 10/27/17 00:00 48 10/26/17 22:00 50 10/26/17 20:03 96 21 10/26/17 20:00 96 Nasal Cannula 2.00 10/26/17 20:00 50 10/26/17 20:00 98.2 50 12 118/60 (79) 96 10/26/17 16:00 96.8 52 23 110/54 (72) 95 10/26/17 12:00 97.2 56 15 116/58 (77) 99 10/26/17 08:00 96.0 58 14 122/57 (78) 99 10/26/17 07:51 100 Nasal Cannula 2.00 10/26/17 07:00 100 Nasal Cannula 2.00 10/26/17 06:00 51 10/26/17 04:00 72 10/26/17 04:00 99.0 72 24 118/58 (78) 98 10/26/17 02:00 62 10/26/17 00:00 62 10/26/17 00:00 98.4 62 20 112/55 (74) 100 10/25/17 22:00 63 10/25/17 20:00 98.7 76 19 121/57 (78) 100 10/25/17 20:00 76 10/25/17 19:00 98 Nasal Cannula 2.00 10/25/17 16:00 98.4 84 27 117/56 (76) 97 10/25/17 12:00 98.3 69 23 123/60 (81) 96 10/25/17 10:06 95 Nasal Cannula 2.00 10/25/17 08:00 98.2 89 18 124/59 (80) 98 10/25/17 07:00 97 Room Air 10/25/17 06:00 85 10/25/17 04:00 90 10/25/17 04:00 98.0 86 22 121/57 (78) 94 10/25/17 02:00 94 10/25/17 00:34 85 114/68 10/25/17 00:00 92 10/25/17 00:00 98.0 81 25 118/56 (76) 98 10/24/17 22:00 90 10/24/17 20:37 98 Nasal Cannula 2.00 10/24/17 20:17 106 111/56 10/24/17 20:00 98.5 90 22 107/54 (71) 99 10/24/17 20:00 90 10/24/17 19:00 96 Nasal Cannula 2.00 10/24/17 18:00 94 10/24/17 16:37 95 121/57 10/24/17 16:00 98.7 94 23 112/56 (74) 99 10/24/17 16:00 94 10/24/17 15:45 92 121/54 10/24/17 14:00 96 116/51 10/24/17 14:00 96 10/24/17 12:45 96 112/59 10/24/17 12:00 94 10/24/17 12:00 98.5 94 22 113/56 (75) 99 (Ethan Taylor) Physical Examination GENERAL: Awake & alert. Affect less flat, readily interacts. No apparent distress. HEENT: Normocephalic, atraumatic. PERRLA 2 mm brisk, EOMI. MMM & pink, tongue midline to protrusion. MUSCULOSKELETAL: TRAMMELL spontaneously & purposefully. Ecchymosis & edema to BUE. NEUROLOGICAL: AAOx3. Speech clear and appropriate. Speaking in complete sentences of several words. Following simple commands. CN II through XII appear grossly intact. PERRLA 2 mm brisk, EOMI. Tongue midline to protrusion. Sensation intact to light touch to extremities. Muscle strength to all major flexion & extension muscle groups appear normal. (Ethan Taylor) Lab, Micro, Other Results Laboratory Tests Test 10/25/17 05:21 10/26/17 02:56 10/27/17 03:21 White Blood Count 6.7 TH/MM3 4.5 TH/MM3 3.2 TH/MM3 Red Blood Count 1.91 MIL/MM3 2.13 MIL/MM3 2.07 MIL/MM3 Hemoglobin 7.6 GM/DL 7.8 GM/DL 7.8 GM/DL Hematocrit 22.3 % 23.5 % 23.2 % Mean Corpuscular Volume 117.0 FL 110.1 FL 112.3 FL Mean Corpuscular Hemoglobin 40.0 PG 36.7 PG 37.6 PG Mean Corpuscular Hemoglobin Concent 34.2 % 33.3 % 33.5 % Red Cell Distribution Width 18.1 % 24.0 % 23.3 % Platelet Count 109 TH/MM3 79 TH/MM3 60 TH/MM3 Mean Platelet Volume 9.1 FL 9.0 FL 9.4 FL Blood Urea Nitrogen 69 MG/DL 78 MG/DL 86 MG/DL Creatinine 2.12 MG/DL 2.45 MG/DL 2.64 MG/DL Random Glucose 168 MG/DL 128 MG/DL 126 MG/DL Calcium Level 8.7 MG/DL 8.1 MG/DL 7.8 MG/DL Sodium Level 138 MEQ/L 142 MEQ/L 140 MEQ/L Potassium Level 4.2 MEQ/L 4.1 MEQ/L 4.1 MEQ/L Chloride Level 104 MEQ/L 109 MEQ/L 108 MEQ/L Carbon Dioxide Level 22.0 MEQ/L 21.1 MEQ/L 20.4 MEQ/L Anion Gap 12 MEQ/L 12 MEQ/L 12 MEQ/L Estimat Glomerular Filtration Rate 22 ML/MIN 19 ML/MIN 17 ML/MIN (Ethan Taylor) Medical Decision Making Impression and Plan Impression: 1. New left frontal intraparenchymal hemorrhage and right mesial frontal- parafalcine parenchymal and subdural hematoma in patient recently admitted for anterior right frontal hemorrhagic contusion after a fall. 2. Hypertension 3. Myelodysplasia 4. Chronic kidney disease-stage II The patient is doing better today and her orientation & speech have improved. There are no evident sensorimotor deficits. Bradycardia for the past 24 hrs. Reviewed labs for today. Haemoglobin stable but decrease in platelet level. Sodium 140. Worsening of renal function. Plan: Primary & critical care management per System Specialist. Will manage conservatively. Neuro check. Stat CT brain for any decline in neuro status. Monitor blood pressure. Monitor sodium. Monitor haemoglobin & platelet levels. Mobilise patient w/assistance. Physical, Occupational & Speech Therapy eval & tx. Patient may transfer to a regular med/surg floor from Neurosurgery's perspective. (Ethan Taylor) Attending Statement The exam, history, and the medical decision-making described in the above note were completed with the assistance of the mid-level provider. I reviewed and agree with the findings presented. I attest that I had a [id number] encounter with the patient on the same day, and personally performed and documented my assessment and findings in the medical record. On my examination 10/27/2017, patient remains awake and alert Speech is improving Follow simple commands well Sensory motor function intact all extremities Neurologic stable for floor Stable for discharge to halfway-inpatient rehabilitation from a neurosurgical standpoint. (Vivek Freire MD) Ethan Taylor Oct 27, 2017 11:04 Vivek Freire MD Oct 27, 2017 21:23
--- NOTE | 2017-10-27 14:42 | HHI.PR ---
Subjective Remarks Follow up for intracranial bleed, acute kidney injury. Patient is currently doing well. She is more alert today. No acute concerns. She is making good amount of urine. Objective Vitals Vital Signs Date Time Temp Pulse Resp B/P (MAP) Pulse Ox O2 Delivery O2 Flow Rate FiO2 10/27/17 12:00 96.4 48 16 144/65 (91) 100 10/27/17 08:12 100 10/27/17 08:00 97.2 46 13 147/64 (91) 99 10/27/17 07:00 96 Room Air 10/27/17 06:00 45 10/27/17 04:00 46 10/27/17 04:00 97.4 46 24 132/64 (86) 98 10/27/17 02:00 52 10/27/17 00:00 98.6 48 18 127/60 (82) 100 10/27/17 00:00 48 10/26/17 22:00 50 10/26/17 20:03 96 21 10/26/17 20:00 96 Nasal Cannula 2.00 10/26/17 20:00 50 10/26/17 20:00 98.2 50 12 118/60 (79) 96 10/26/17 16:00 96.8 52 23 110/54 (72) 95 I/O 10/26/17 10/26/17 10/26/17 10/27/17 10/27/17 10/27/17 07:00 15:00 23:00 07:00 15:00 23:00 Intake Total 1350 ml 1000 ml 2120 ml Output Total 550 ml 300 ml Balance 800 ml 1000 ml -300 ml 2120 ml IV Total 1350 ml 1000 ml 2120 ml Output Urine Total 550 ml 300 ml # Voids 1 4 # Bowel Movements 0 1 3 Result Diagram: 10/27/17 0321 10/27/17 0321 Imaging Last Impressions Head CT 10/24/17 0000 Signed Impressions: Service Date/Time: Tuesday, October 24, 2017 06:06 - CONCLUSION: 1. Sites of acute intraparenchymal hemorrhage involving the left frontal lobe and left temporal tip. 2. Acute subdural hemorrhage tracking along the falx anteriorly as well as the middle cranial fossa on the left. Cristofer Pratt Jr., MD Objective Remarks GENERAL: Alert, NAD. SKIN: Warm and dry. HEAD: Normocephalic. EYES: No scleral icterus. No injection or drainage. NECK: Supple, trachea midline. No JVD or lymphadenopathy. CARDIOVASCULAR: Regular rate and rhythm without murmurs, gallops, or rubs. RESPIRATORY: Breath sounds equal bilaterally. No accessory muscle use. GASTROINTESTINAL: Abdomen soft, non-tender, nondistended. MUSCULOSKELETAL: No cyanosis, or edema. BACK: Nontender without obvious deformity. No CVA tenderness. Procedures None A/P Assessment and Plan Ms. Chery is an 82-year-old female who was brought from [facility] due to acute onset of aphasia and radiological finding of large left frontal spontaneous intraparenchymal hemorrhage. She has a history of hypertension, myelodysplasia and chronic kidney disease stage II. Neurosurgery was consulted. Neurosurgery recommended conservative treatment and observation for the ICH. Large left frontal Intraparenchymal hemorrhage Expressive aphasia Hypertension -Continue clonidine 0.2 mg every 8 hours, carvedilol 25 mg twice daily -Continue atorvastatin 20 mg p.o. nightly, isosorbide mononitrate 30 mg daily Acute kidney injury -Creatinine 1.21 on admission. Increased to 2.45 --> 2.64 today. -We discontinued torsemide and losartan -BMP in the morning. If creatinine continues to rise, consider consulting nephrology. Thrombocytopenia PLT dropped from 113K --> 60K. No heparin or Lovenox use during this admission. If platelet drops any further, we may need to give platelet transfusion given patient's intracranial bleed. Full code. SCDs. Ayala Olguin DO Oct 27, 2017 2:42 pm
[2017-10-27] MEDS: ATORVASTATIN 20 MG TAB PO SCH (22:37)
[2017-10-27] MEDS: FAMOTIDINE 20 MG TAB PO SCH (22:37)
[2017-10-28 00:45] VITALS: BP 140/69; PULSE 58; RESP 19; TEMP 98.9; O2SAT 96
[2017-10-28] MEDS: SODIUM CHLOR 0.9% 1000 ML INJ 1,000 ML IV SCH ×2 (02:40→05:40)
[2017-10-28] MEDS: CHLORHEXIDINE GLUCONATE 2 % 1 PACK (2 CLOTHS) TOP SCH (02:53)
[2017-10-28 04:40] VITALS: BP 145/65; PULSE 54; RESP 18; TEMP 97.9; O2SAT 96
[2017-10-28] MEDS: LEVOTHYROXINE SODIUM 50 MCG TAB PO SCH (05:11)
[2017-10-28] MEDS: cloNIDine HCL 0.2 MG TAB PO SCH ×2 (05:11→13:00)
[2017-10-28 07:05] LABS: HEMATOCRIT 24.2 % (35.0-46.0); HEMOGLOBIN 8.2 GM/DL (11.6-15.3); MEAN CELL VOLUME 110.3 FL (80.0-100.0); MEAN CORPUSCULAR HEMOGLOBIN 37.5 PG (27.0-34.0); MEAN CORPUSCULAR HGB CONC 33.9 % (32.0-36.0); PLATELET COUNT 59 TH/MM3 (150-450); RED BLOOD COUNT 2.19 MIL/MM3 (4.00-5.30); RED CELL DISTRIBUTION WIDTH 23.7 % (11.6-17.2); WHITE BLOOD COUNT 2.8 TH/MM3 (4.0-11.0)
[2017-10-28 07:48] LABS: BICARBONATE 19.9 MEQ/L (21.0-32.0); CALCIUM 7.7 MG/DL (8.5-10.1); CREATININE 2.3 MG/DL (0.50-1.00)
[2017-10-28 08:00] VITALS: BP 183/78; PULSE 53; RESP 16; TEMP 97.6; O2SAT 96
[2017-10-28] MEDS: INSULIN NovoLIN REGULAR SUPPLEMENTAL SCALE SQ SCH ×3 (08:00→17:00)
[2017-10-28] MEDS: CARVEDILOL 12.5 MG TAB PO SCH (08:28)
[2017-10-28] MEDS: FAMOTIDINE 20 MG TAB PO SCH (08:28)
[2017-10-28] MEDS: ISOSORBIDE MONONITRATE 30 MG CR TAB (IMDUR) PO SCH (08:28)
[2017-10-28] MEDS ORDERED: NIFE30TA61 PO (10:14)
--- NOTE | 2017-10-28 10:16 | HHI.PR ---
Subjective Remarks Follow up for intracranial bleed, acute kidney injury. Patient is currently doing well. No acute concerns. Objective Vitals Vital Signs Date Time Temp Pulse Resp B/P (MAP) Pulse Ox O2 Delivery O2 Flow Rate FiO2 10/28/17 08:00 97.6 53 16 183/78 (113) 96 10/28/17 04:40 97.9 54 18 145/65 (91) 96 10/28/17 00:45 98.9 58 19 140/69 (92) 96 10/27/17 22:30 Room Air 10/27/17 21:50 97.8 50 18 150/67 (94) 97 10/27/17 17:07 98.0 44 20 159/71 (100) 98 10/27/17 16:00 97.0 46 16 151/67 (95) 96 10/27/17 12:00 96.4 48 16 144/65 (91) 100 I/O 10/27/17 10/27/17 10/27/17 10/28/17 10/28/17 10/28/17 07:00 15:00 23:00 07:00 15:00 23:00 Intake Total 2120 ml 600 ml 1910 ml Output Total 100 ml Balance 2120 ml 600 ml 1910 ml -100 ml Intake Oral 600 ml 910 ml IV Total 2120 ml 1000 ml Output Urine Total 100 ml # Voids 4 1 3 # Bowel Movements 3 0 0 Result Diagram: 10/28/17 0609 10/28/17 0609 Imaging Last Impressions Head CT 10/24/17 0000 Signed Impressions: Service Date/Time: Tuesday, October 24, 2017 06:06 - CONCLUSION: 1. Sites of acute intraparenchymal hemorrhage involving the left frontal lobe and left temporal tip. 2. Acute subdural hemorrhage tracking along the falx anteriorly as well as the middle cranial fossa on the left. Cristofer Pratt Jr., MD Objective Remarks GENERAL: Alert, NAD. SKIN: Warm and dry. HEAD: Normocephalic. EYES: No scleral icterus. No injection or drainage. NECK: Supple, trachea midline. No JVD or lymphadenopathy. CARDIOVASCULAR: Regular rate and rhythm without murmurs, gallops, or rubs. RESPIRATORY: Breath sounds equal bilaterally. No accessory muscle use. GASTROINTESTINAL: Abdomen soft, non-tender, nondistended. MUSCULOSKELETAL: No cyanosis, or edema. BACK: Nontender without obvious deformity. No CVA tenderness. Procedures None A/P Assessment and Plan Ms. Chery is an 82-year-old female who was brought from [facility] due to acute onset of aphasia and radiological finding of large left frontal spontaneous intraparenchymal hemorrhage. She has a history of hypertension, myelodysplasia and chronic kidney disease stage II. Neurosurgery was consulted. Neurosurgery recommended conservative treatment and observation for the ICH. Large left frontal Intraparenchymal hemorrhage Expressive aphasia Hypertension -Continue clonidine 0.2 mg every 8 hours, carvedilol 25 mg twice daily -Patient is allergic to amlodipine. Will start patient on nifedipine 30 mg daily. -Continue atorvastatin 20 mg p.o. nightly, isosorbide mononitrate 30 mg daily Acute kidney injury -Creatinine 1.21 on admission. Increased to 2.45 --> 2.64 --> 2.30 today. -Losartan was discontinued due to SANTI. Can be re-started after patient sees her systems auditor. -Torsemide will be started with low dose KCL Thrombocytopenia PLT dropped from 113K --> 60K --> 59K, stable. No heparin or Lovenox use during this admission. Full code. SCDs. Ayala Olguin DO Oct 28, 2017 10:16 am
--- NOTE | 2017-10-28 10:40 | HHI.NSPN ---
(Ethan TaylorNas WINCHESTERP) History Chief Complaint: None (Ethan TaylorNas OBSTETRICAL TECH) Interval History 10/24: 82-year-old female recently admitted to [facility] 09/19/2017 after she sustained a anterior medial right frontal hemorrhagic contusion after a fall in a parking lot. She was seen by neurosurgery and managed conservatively. She was noted to have myelodysplasia with anemia and thrombocytopenia was seen by hematology and given initial packed cells and platelets. The patient presented back to [facility] emergency room earlier today with acute onset aphasia. CT scan revealed a new left frontal parenchymal intracranial hemorrhage. She was transferred back to [facility] for neurosurgery evaluation. Initial blood pressure on arrival at this facility 170s systolic. No seizures reported. Discussion with the patient's daughter indicates that the patient fell earlier this past week and was taken back to the emergency room for evaluation. She fell again twice yesterday, without definite loss of consciousness. However yesterday afternoon and evening she had a fairly rapid decline in her speech. 10/25: The patient is awake and alert when seen. She is having mild to moderate respiratory effort on a nasal cannula due to her COPD. She will contradict a prior response if the same question is worded differently. She is moving all extremities spontaneously and purposefully and follows commands. She does seem to be hypersensitive to touch of the feet otherwise there are no sensorimotor deficits noted. 10/26: This morning the patient remains awake and alert. She does not appear to have an increased respiratory effort. She denied any headache, dizziness or double or blurry vision. She also had no pain, numbness or tingling to the extremities. She is in soft wrist restraints. She spontaneously and purposefully moves all extremities. She continues to be confused. 10/27: When seen this morning the patient is sitting up with the bed in the chair mode. She is awake and alert. He had no complaints of headache, dizziness , double or blurry vision or any extremity pain, numbness or tingling. Her respiratory effort is normal. She is oriented to person, place and time and her speech has improved. She is moving all extremities spontaneously and purposefully. 10/28: Since last seen the patient was transferred from [facility] to a regular med/ surg floor. The patient is sitting on the edge of the bed with all her belongs packed and on the bed with her. She denied any headache, dizziness or visual difficulty. She also denied any extremity pain, numbness or tingling. She had no sensorimotor deficits upon examination and she was oriented to person, place and time. (Ethan Taylor) Exam Results 10/26/17 10/26/17 10/27/17 10/27/17 10/28/17 10/28/17 06:00 18:00 06:00 18:00 06:00 18:00 Intake Total 1350 ml 1000 ml 2120 ml 2510 ml Output Total 550 ml 300 ml 100 ml Balance 800 ml 1000 ml 1820 ml 2510 ml -100 ml Intake Oral 1510 ml IV Total 1350 ml 1000 ml 2120 ml 1000 ml Output Urine Total 550 ml 300 ml 100 ml # Voids 5 4 # Bowel Movements 0 4 0 Vital Signs Date Time Temp Pulse Resp B/P (MAP) Pulse Ox O2 Delivery O2 Flow Rate FiO2 10/28/17 08:00 97.6 53 16 183/78 (113) 96 10/28/17 04:40 97.9 54 18 145/65 (91) 96 10/28/17 00:45 98.9 58 19 140/69 (92) 96 10/27/17 22:30 Room Air 10/27/17 21:50 97.8 50 18 150/67 (94) 97 10/27/17 17:07 98.0 44 20 159/71 (100) 98 10/27/17 16:00 97.0 46 16 151/67 (95) 96 10/27/17 12:00 96.4 48 16 144/65 (91) 100 10/27/17 08:12 100 10/27/17 08:00 97.2 46 13 147/64 (91) 99 10/27/17 07:00 96 Room Air 10/27/17 06:00 45 10/27/17 04:00 46 10/27/17 04:00 97.4 46 24 132/64 (86) 98 10/27/17 02:00 52 10/27/17 00:00 98.6 48 18 127/60 (82) 100 10/27/17 00:00 48 10/26/17 22:00 50 10/26/17 20:03 96 21 10/26/17 20:00 96 Nasal Cannula 2.00 10/26/17 20:00 50 10/26/17 20:00 98.2 50 12 118/60 (79) 96 10/26/17 16:00 96.8 52 23 110/54 (72) 95 10/26/17 12:00 97.2 56 15 116/58 (77) 99 10/26/17 08:00 96.0 58 14 122/57 (78) 99 10/26/17 07:51 100 Nasal Cannula 2.00 10/26/17 07:00 100 Nasal Cannula 2.00 10/26/17 06:00 51 10/26/17 04:00 72 10/26/17 04:00 99.0 72 24 118/58 (78) 98 10/26/17 02:00 62 10/26/17 00:00 62 10/26/17 00:00 98.4 62 20 112/55 (74) 100 10/25/17 22:00 63 10/25/17 20:00 98.7 76 19 121/57 (78) 100 10/25/17 20:00 76 10/25/17 19:00 98 Nasal Cannula 2.00 10/25/17 16:00 98.4 84 27 117/56 (76) 97 10/25/17 12:00 98.3 69 23 123/60 (81) 96 (Ethan Taylor) Physical Examination GENERAL: Awake & alert. Affect slightly flat, readily interacts. No apparent distress. HEENT: Normocephalic, atraumatic. PERRLA 2 mm brisk, EOMI. MMM & pink, tongue midline to protrusion. MUSCULOSKELETAL: TRAMMELL spontaneously & purposefully. Ecchymosis & edema to BUE. NEUROLOGICAL: AAOx3. Speech clear and appropriate. Speaking in complete sentences of several words. Following simple commands. CN II through XII appear grossly intact. PERRLA 2 mm brisk, EOMI. Tongue midline to protrusion. Sensation intact to light touch to extremities. Muscle strength to all major flexion & extension muscle groups appear normal. (Ethan Taylor) Lab, Micro, Other Results Laboratory Tests Test 10/26/17 02:56 10/27/17 03:21 10/28/17 06:09 White Blood Count 4.5 TH/MM3 3.2 TH/MM3 2.8 TH/MM3 Red Blood Count 2.13 MIL/MM3 2.07 MIL/MM3 2.19 MIL/MM3 Hemoglobin 7.8 GM/DL 7.8 GM/DL 8.2 GM/DL Hematocrit 23.5 % 23.2 % 24.2 % Mean Corpuscular Volume 110.1 FL 112.3 FL 110.3 FL Mean Corpuscular Hemoglobin 36.7 PG 37.6 PG 37.5 PG Mean Corpuscular Hemoglobin Concent 33.3 % 33.5 % 33.9 % Red Cell Distribution Width 24.0 % 23.3 % 23.7 % Platelet Count 79 TH/MM3 60 TH/MM3 59 TH/MM3 Mean Platelet Volume 9.0 FL 9.4 FL 9.0 FL Blood Urea Nitrogen 78 MG/DL 86 MG/DL 84 MG/DL Creatinine 2.45 MG/DL 2.64 MG/DL 2.30 MG/DL Random Glucose 128 MG/DL 126 MG/DL 97 MG/DL Calcium Level 8.1 MG/DL 7.8 MG/DL 7.7 MG/DL Sodium Level 142 MEQ/L 140 MEQ/L 141 MEQ/L Potassium Level 4.1 MEQ/L 4.1 MEQ/L 3.8 MEQ/L Chloride Level 109 MEQ/L 108 MEQ/L 110 MEQ/L Carbon Dioxide Level 21.1 MEQ/L 20.4 MEQ/L 19.9 MEQ/L Anion Gap 12 MEQ/L 12 MEQ/L 11 MEQ/L Estimat Glomerular Filtration Rate 19 ML/MIN 17 ML/MIN 20 ML/MIN (Ethan Taylor) Medical Decision Making Impression and Plan Impression: 1. New left frontal intraparenchymal hemorrhage and right mesial frontal- parafalcine parenchymal and subdural hematoma in patient recently admitted for anterior right frontal hemorrhagic contusion after a fall. 2. Hypertension 3. Myelodysplasia 4. Chronic kidney disease-stage II The patient continues to do well and there is no change in her orientation or speech. There are no evident sensorimotor deficits. Bradycardia for the past 24 hrs. Elevated SBP this morning. Reviewed labs for today. Haemoglobin level improved. Platelet level essentially stable. Sodium 141. Some improvement of renal function. Plan: Primary per Hospitalist. Will manage conservatively. Neuro check. Stat CT brain for any decline in neuro status. Monitor blood pressure. Monitor sodium. Monitor haemoglobin & platelet levels. Mobilise patient w/assistance. Physical, Occupational & Speech Therapy eval & tx. Patient is stable for discharge to SNF/inpatient rehab from Neurosurgery's perspective. Patient to call the office to arrange for a follow up appointment in 2-3 wks w/ a CT brain to be completed before. (Ethan Taylor) Attending Statement The exam, history, and the medical decision-making described in the above note were completed with the assistance of the mid-level provider. I reviewed and agree with the findings presented. I attest that I had a [id number] encounter with the patient on the same day, and personally performed and documented my assessment and findings in the medical record. (Vivek Freire MD) Ethan Taylor Oct 28, 2017 10:40 Vivek Freire MD Oct 28, 2017 15:17
[2017-10-28 11:03] VITALS: O2SAT 95
[2017-10-28 12:00] VITALS: BP 186/77; PULSE 56; RESP 16; TEMP 97.6; O2SAT 97
[2017-10-28 16:00] VITALS: BP 177/77; PULSE 67; RESP 16; TEMP 97.6; O2SAT 96
[2017-10-28] MEDS ORDERED: cloNIDine HCL 0.2 MG TAB PO ONE (18:00)
== END 2017-10-28 19:45 | DRG 65 ==
LOC: N03B 05:07 → N05A 10-27 16:30
PROVIDERS: ADMIT Hospitalist; ATTEND Hospitalist
PROC: 30233N1 Transfusion of Nonautologous Red Blood Cells into Peripheral Vein, Percutaneous Approach (ICD-10-PCS; principal; 2017-10-25)
DX: I61.1 Nontraumatic intracerebral hemorrhage in hemisphere, cortical (principal); R47.01 Aphasia; N17.9 Acute kidney failure, unspecified; D69.6 Thrombocytopenia, unspecified; I13.0 Hypertensive heart and chronic kidney disease with heart failure and stage 1 through stage 4 chronic kidney disease, or unspecified chronic kidney disease; I50.9 Heart failure, unspecified; N18.2 Chronic kidney disease, stage 2 (mild); R00.1 Bradycardia, unspecified; D46.9 Myelodysplastic syndrome, unspecified; I16.1 Hypertensive emergency; J44.9 Chronic obstructive pulmonary disease, unspecified; R60.0 Localized edema; R79.89 Other specified abnormal findings of blood chemistry; Z78.1 Physical restraint status; Z91.81 History of falling; Z85.3 Personal history of malignant neoplasm of breast
CPT/HCPCS: 36430; 70450; 80048; 80053; 82948; 83605; 84134; 85025; 85027; 85610; 85730; 86850; 86900; 86901; 86920; 86922; 87641; 94150; 94640; 94667; 94668; J7030; J7040; J7050; P9016